=== PATIENT | male | born 1955 | race Caucasian/White ===

== ENCOUNTER → 2016-06-14 | Outpatient (CLI) | payer MEDICARE ==
--- NOTE | 2016-06-14 10:32 | MR ---
EXAMINATION TYPE: MR shoulder RT wo con DATE OF EXAM: 06/14/2016 9:56 AM COMPARISON: NONE HISTORY: 61-year-old male evaluated for Rotator cuff tear, pain x 1 month. TECHNIQUE: Multiplanar, multisequence imaging of the right shoulder is performed without contrast. FINDINGS: A bank of peripherally positioned suture anchors is present along the greater tuberosity from prior c uff repair. Secondary metal artifact. However, there is severe thinning and a fluid gap in the region of the is supraspinatus tendon measuring 1.8 cm long and 1.7 cm AP dimension. Some of the far anteri or supraspinatus tendon fibers appear to be maintained. The majority of the subscapularis tendon appears intact. There is isolated mild to moderate atrophy of the teres minor muscle belly. No mass lesion seen withi n the quadrilateral space. There are postsurgical changes at the acromion as well probably relating to prior acromioplasty. Small amount of fluid within the subacromial/subdeltoid bursa communicating with the underlying shoul lety joint. Glenohumeral joint appears intact without significant joint effusion. There is some degenerative sign al in the superior labrum without discrete labral tear given nonarthrographic technique. No paralabra l cyst. There is excessive artifact limiting visualization of the intracapsular portion of the long head maria c ps tendon. The visualized portions on sagittal series appears somewhat diminutive and could be partia lly torn. No Hill-Sachs deformity or os acromiale. No suspicious bone marrow replacement. IMPRESSION: 1. Status post cuff repair with findings compatible with full-thickness rotator cuff re-tear involvin g the supraspinatus tendon (1.8 cm long by 1.7 cm AP dimension) sparing some of the far anterior fibe rs. 2. Isolated teres minor muscle atrophy can be seen in the setting of quadrilateral space syndrome. 3. Metal artifact limiting visualization of the long head biceps tendon. The intracapsular portion ap pears somewhat diminutive and could be partially torn.
== END | disposition home or self-care (01) ==
LOC: RADMRIMAIN 09:22
PROVIDERS: ATTEND Orthopaedic Surgery
DX: M62.511 Muscle wasting and atrophy, not elsewhere classified, right shoulder (principal)

== ENCOUNTER → 2016-10-09 | Outpatient (CLI) | payer MEDICARE ==
--- NOTE | 2016-10-09 09:25 | MR ---
MRI of the brain with and without contrast HISTORY: Tremors and unsteadiness TECHNIQUE: T1-weighted sagittal, T2, FLAIR, and diffusion axial, postcontrast T1 axial and coronal vi ews of the brain are submitted. CONTRAST: 20 mL MultiHance FINDINGS: There is no evidence of acute ischemia. The ventricles, basal cisterns, and sulci overlying the co nvexities are consistent with the patient's age. There is no mass effect or enhancing mass. Craniocervical junction maintained. Sella turcica has a normal appearance. No evidence of cerebellopo ntine angle mass. Changes of chronic sinusitis. Abnormal signal the chel[place] is suggestive of remote ischemia. Faint abnormal signal the periventricular region as well as areas of focal abnormal signal are nonspe cific. Most likely etiology is remote microvascular ischemia no midline shift or mass effect. There is a venous angioma left temporal lobe. IMPRESSION: 1. No acute intracranial process. 2. Nonspecific white matter changes. Most likely etiology is remote microvascular ischemia. Other darell ologies including demyelinating process not entirely excluded. 3. Findings involving the chelsea most typical of remote ischemia. 4. Venous angioma left temporal lobe
== END | disposition home or self-care (01) ==
LOC: RADMRIMAIN 07:39
PROVIDERS: ATTEND Family Medicine
DX: Q28.3 Other malformations of cerebral vessels (principal); R90.82 White matter disease, unspecified; R25.1 Tremor, unspecified; R26.81 Unsteadiness on feet
CPT/HCPCS: 70553; A9577

== ENCOUNTER 2016-10-20 22:53 | Emergency (ER) | payer MEDICARE ==
[2016-10-20 23:00] VITALS: RESP 18
--- NOTE | 2016-10-21 00:47 | ED ---
General Adult HPI - General Chief complaint: Extremity Injury, Lower Stated complaint: L foot pain Time Seen by Provider: 10/20/16 23:11 Source: patient, family, RN notes reviewed, old records reviewed Mode of arrival: wheelchair Limitations: no limitations - History of Present Illness Initial comments: chief complaint history of present illness this is a 61-year-old male here with his significant other. He is coming because of painful swollen left leg. States his feet up and cold as well otherwise no complaint of headache chest pain shortness breath GI/ problems - Related Data Allergies Allergy/AdvReac Type Severity Reaction Status Date / Time amoxicillin Allergy Rash/Hives Verified 10/20/16 23:00 Review of Systems ROS Statement: Those systems with pertinent positive or pertinent negative responses have been documented in the HPI. review of systems no complaint of headache or chest pain or shortness of breath no GI/ problems. His been having discomfort to his feet. States his left ankle and leg is more swollen than the tender left calf. All systems are reviewedPast medical problems significant breasts leg syndrome hyperlipidemia, surgeries bilateral shoulder repairs and appendectomy. Family history noncontributory ALLERGIES to amoxicillin. ROS Other: All systems not noted in ROS Statement are negative. Past Medical History Past Medical History: Hyperlipidemia Additional Past Medical History / Comment(s): Restless leg History of Any Multi-Drug Resistant Organisms: None Reported Past Surgical History: Appendectomy, Orthopedic Surgery Additional Past Surgical History / Comment(s): Bilateral shoulder surgery, right elbow, right knee Past Psychological History: No Psychological Hx Reported Smoking Status: Current every day smoker Past Alcohol Use History: None Reported Past Drug Use History: None Reported General Exam - General Exam Comments Initial Comments: General: The patient is awake and alert, planes of on again off again pain to his feet and swollen left ankle.l. Eye: Pupils are equal, , extra-ocular movements are intact; there is normal conjunctiva bilaterally. No signs of icterus. Ears, nose, mouth and throat: There are moist mucous membranes Neck: The neck is supple, there is no tenderness Cardiovascular: There is a regular rate and rhythm. No murmur, rub or gallop is appreciated. Respiratory: Lungs are clear to auscultation, respirations are non-labored, breath sounds are equal. No wheezes, stridor, rales, or rhonchi. Gastrointestinal: Soft, non-distended, non-tender abdomen without masses or organomegaly noted. There is no rebound or guarding present. No CVA tenderness. Bowel sounds are unremarkable. Back: There is no tenderness to palpation in the midline. There is no obvious deformity. No rashes noted. Musculoskeletal: complains of occasional on-again off-again foot pain and feeling cold. Mild swelling left leg left ankle. Doppler used to and he could hear posterior tibial pedis dorsalis and posterior peroneal on both feet.ultrasound negative for DVT left leg Neurological: no neuro deficits Limitations: no limitations Course Vital Signs 10/20/16 22:56 Temperature 97.7 F Pulse Rate 94 Respiratory 18 Rate Blood Pressure 126/73 O2 Sat by Pulse 95 Oximetry Procedures - Procedures Initial comment: her seizure I used a Doppler to investigate the arterial flow both feet and all 3 major vessels were found on bimalleolar areas and pedis dorsalis. Dr. Acosta Medical Decision Making - Medical Decision Making patient has a prescription to get an arterial Doppler. they have an appointment. They've been advised to keep legs elevated and return for that appointment if in the meanwhile any changes happened return emergency room. Disposition Clinical Impression: Peripheral vascular disease Disposition: HOME SELF-CARE Condition: Fair Instructions: Peripheral Vascular Disease (ED) Additional Instructions: Follow-up family physician return to the department on the day of your appointment to have an arterial Doppler study. Referrals: Renetta Colon III, MD [Primary Care Provider] - 1-2 days Time of Disposition: 00:50
[2016-10-21 01:02] VITALS: BP 145/89; PULSE 81; TEMP 98.7
--- NOTE | 2016-10-21 01:16 | US ---
EXAM: US VENOUS LEFT LOWER EXTREMITY INDICATION: 61-year-old male with pain. TECHNIQUE: Real-time imaging of the left common femoral, superficial femoral and popliteal veins is performed utilizing intermittent compression. The study is supplemented with color flow imaging and duplex Doppler during spontaneous flow and calf augmentation. COMPARISON: None. FINDINGS: Normal compressibility is demonstrated from the common femoral vein to the popliteal vein. There is normal response to augmentation. Normal spontaneous phasic flow is noted. IMPRESSION: No evidence of deep venous thrombosis in the left lower extremity.
== END 2016-10-21 01:00 | disposition home or self-care (01) ==
LOC: EC 22:53
DX: I73.9 Peripheral vascular disease, unspecified (principal); F17.200 Nicotine dependence, unspecified, uncomplicated; Z88.0 Allergy status to penicillin
CPT/HCPCS: 99284

== ENCOUNTER → 2016-10-26 | Outpatient (CLI) | payer MEDICARE ==
--- NOTE | 2016-10-26 15:23 | CTL ---
EXAMINATION TYPE: CT Low Dose Lung DATE OF EXAM ORDERED: 10/26/2016 HISTORY: Personal history of tobacco use. Lung cancer screening CT DLP: [address] CTDI: 2.68 mGy Automated exposure control for dose reduction was used. SCREENING VISIT: First study COMPARISON: None TECHNIQUE: Low dose computed tomography scan was performed through the chest at 1 mm thick sections a nd reconstructed images in the coronal plane at [address] DIAGNOSTIC QUALITY: Limited, but interpretable More artifact than typical. FINDINGS: LUNG NODULES: None. No concerning noncalcified nodules. There is 7 x 6 mm calcified nodule superio r medial right upper lobe on axial image 126. LUNGS: COPD: Severity: Mild Fibrosis: Severity: Mild reticulation or fibrosis subpleural region bilateral upper lobes. Lymph nodes: Prominent but subcentimeter prevascular, AP window, and paracarinal lymph nodes. No grea ter than 1 cm noncalcified lymph nodes. Prominent calcified subcentimeter right hilar lymph node. Other findings: Mild central parahilar peribronchial cuffing bilaterally. BILATERAL PLEURAL SPACE: Effusion: None Calcification: None Thickening: Mild to minimal apical pleural thickening posterior laterally right upper lobe. Pneumothorax: None HEART: Heart Size: Normal Coronary calcification: Mild to moderate Pericardial effusion: None OTHER FINDINGS: Upper abdomen: No significant abnormality seen. Bony thorax: Mild multilevel spurring is present. Supraclavicular region: No suspicious abnormality is seen. Other: No additional significant finding identified. IMPRESSION: No suspicious nodules evident. FOLLOW UP CT CHEST RECOMMENDATION: Annual low-dose lung screening CT. CT LUNG RAD: Lung-Rad 1 Negative
== END | disposition home or self-care (01) ==
LOC: RADCTMAIN 07:56
PROVIDERS: ATTEND Family Medicine
DX: Z12.2 Encounter for screening for malignant neoplasm of respiratory organs (principal); F17.210 Nicotine dependence, cigarettes, uncomplicated

== ENCOUNTER → 2016-11-05 | Outpatient (CLI) | payer MEDICARE ==
--- NOTE | 2016-11-07 11:30 | P.ARTDOP ---
Arterial Doppler LOWER EXTREMITY ARTERIAL DOPPLER: DATE OF SERVICE: 11/05/2016 Reason for study: Left foot pain. Doppler waveforms: Multiphasic bilaterally throughout. Pulse volume recording: Normal configuration. Pressure gradients: None. Ankle-brachial indices: Greater than 1 bilaterally. Toe pressures: 91 on the right, 96 on the left Impression: Normal study.
== END | disposition home or self-care (01) ==
LOC: RADUSWWP 08:23
PROVIDERS: ATTEND Family Medicine
DX: M79.672 Pain in left foot (principal); R20.2 Paresthesia of skin
CPT/HCPCS: 93923

== ENCOUNTER → 2016-11-23 | Outpatient (CLI) | payer MEDICARE ==
--- NOTE | 2016-11-23 15:12 | XR ---
EXAMINATION TYPE: XR foot complete LT DATE OF EXAM: 11/23/2016 COMPARISON: NONE HISTORY: 61 year-old male left foot pain for 3 months TECHNIQUE: 3 views FINDINGS: There is a Morel's toe with minimal degenerative spurring first MTP joint, type I accessory navicula r, accessory ossicle os peroneum, and tiny plantar calcaneal spur. No acute fracture, subluxation, or dislocation. IMPRESSION: Morel's toe and tiny plantar calcaneal spur. No acute osseous abnormality seen.
== END | disposition home or self-care (01) ==
LOC: RAD 13:35
PROVIDERS: ATTEND Nurse Practitioner Family
DX: G57.62 Lesion of plantar nerve, left lower limb (principal); M77.32 Calcaneal spur, left foot

== ENCOUNTER → 2017-11-08 | Outpatient (CLI) | payer MEDICARE ==
--- NOTE | 2017-11-08 13:02 | CTL ---
EXAMINATION TYPE: CT Low Dose Lung DATE OF EXAM ORDERED: 11/08/2017 HISTORY: Long-term tobacco use . Lung cancer screening CT DLP: 169.[address] CTDI: 4.2 mGy Automated exposure control for dose reduction was used. SCREENING VISIT: Second study COMPARISON: CT low dose lung screening CT October 26, 2016 TECHNIQUE: Low dose computed tomography scan was performed through the chest at 1 mm thick sections a nd reconstructed images in the coronal plane at [address] DIAGNOSTIC QUALITY: Satisfactory FINDINGS: LUNG NODULES: None. Persistent stable 6 mm calcified nodule right lower lobe axial image 142. LUNGS: COPD: Severity: Mild Fibrosis: Severity: Fairly mild to moderate upper lung peripheral reticulation and/or fibrosis is red emonstrated. Lymph nodes: No new greater than 1 cm noncalcified lymph nodes. Calcified subcentimeter right hilar l ymph nodes redemonstrated. Other findings: No additional significant findings. BILATERAL PLEURAL SPACE: Effusion: None Calcification: None Thickening: Minimal pleural thickening posterior lateral right upper lobe axial image 53 remains pres ent. Pneumothorax: None HEART: Heart Size: Normal Coronary calcification: Mild to moderate Pericardial effusion: None OTHER FINDINGS: Upper abdomen: No suspicious findings seen. Bony thorax: Straightening of spine with mild multilevel spurring is again seen. Supraclavicular region: No suspicious mass is identified. Other: Tiny amount of bilateral gynecomastia is redemonstrated. Surgical change to right humeral head is partially imaged. IMPRESSION: No suspicious nodules evident. FOLLOW UP CT CHEST RECOMMENDATION: Annual low-dose lung screening CT CT LUNG RAD: Lung-Rad 1 Negative
== END | disposition home or self-care (01) ==
LOC: RADCTMAIN 10:33
PROVIDERS: ATTEND Family Medicine
DX: Z12.2 Encounter for screening for malignant neoplasm of respiratory organs (principal); Z87.891 Personal history of nicotine dependence

== ENCOUNTER → 2018-06-10 | Outpatient (CLI) | payer MEDICARE, BC ==
--- NOTE | 2018-06-10 13:09 | XR ---
EXAMINATION TYPE: XR chest 2V DATE OF EXAM: 06/10/2018 COMPARISON: NONE TECHNIQUE: PA and lateral views submitted. HISTORY: Preop FINDINGS: The lungs are clear and there is no pneumothorax, pleural effusion, or focal pneumonia. The heart i s enlarged. Postsurgical change overlying the shoulder. Pleural thickening noted bilaterally. IMPRESSION: 1. Cardiomegaly correlate for COPD and pleural thickening.
[2018-06-10 14:58] LABS: Appearance,Urine Cloudy (Clear); Bilirubin,Urine Negative (Negative); Blood,Urine Negative (Negative); Color,Urine Yellow; Glucose,Urine (UA) Negative (Negative); INR 0.9 (<1.2); Ketones,Urine Negative (Negative); Leukocyte Esterase,Urine Moderate (Negative); Mucus,Urine Few /hpf; Nitrite,Urine Negative (Negative); Partial Thromboplastin Time 27.3 sec (22.0-30.0); Protein,Urine Negative (Negative); Prothrombin Time 10.2 sec (9.0-12.0); RBC,Urine 4 /hpf (0-5); Specific Gravity,Urine 1.022 (1.001-1.035); Squamous Epithelial Cell,Urine 2 /hpf (0-4); Urobilinogen,Urine <2.0 mg/dL (<2.0); WBC,Urine 10 /hpf (0-5)
== END | disposition home or self-care (01) ==
LOC: RADXRMAIN 12:21
PROVIDERS: ATTEND Orthopaedic Surgery Orthopaedic Surgery of the Spine
DX: Z01.818 Encounter for other preprocedural examination (principal); I51.7 Cardiomegaly; J92.9 Pleural plaque without asbestos; Z01.812 Encounter for preprocedural laboratory examination
CPT/HCPCS: 36415; 71046; 81001; 85610; 85730; 87070

== ENCOUNTER 2018-06-18 07:30 | Inpatient (IN) | payer MEDICARE, BC ==
[2018-06-13 13:28] VITALS: BMI 35.4
[~2018-06-18 07:30] MED LIST: BACITRACIN 50,000 UNIT, POLYMYXIN B 500,000 UNIT in SODIUM CHLORIDE 0.9% IRRIGATIO 1,00... IRRIGATION ONE; DEXAMETHASONE SOD PHOSPHATE 10 MG/ML 1 ML VIAL IV ONE; HYDROmorphone 0.5 MG/0.5 ML SYRINGE IVP PRN; MIDAZOLAM (PF) 2 MG/2 ML VIAL IV PRN; ONDANSETRON 4 MG/2 ML VIAL IVP ONE; SCOPOLAMINE 1.5MG/72HR PATCH TRANSDERM ONE; ceFAZolin IN SWFI 2 GM/20 ML SYRINGE IVP ONE
[2018-06-18] MEDS: LACTATED RINGERS 1,000 ML IV SCH (11:27)
[2018-06-18] MEDS ORDERED: fentaNYL (PF) 50 MCG/ML 2 ML AMP ONE (11:43)
[2018-06-18] MEDS ORDERED: NEOSTIGMINE 1 MG/ML 10 ML VIAL ONE (11:43)
[2018-06-18] MEDS ORDERED: ROCURONIUM BROMIDE 10 MG/ML 10 ML VIAL IV ONE (11:43)
[2018-06-18] MEDS ORDERED: HYDROmorphone (PF) 1 MG/ML ONE (11:43)
[2018-06-18] MEDS ORDERED: PHENYLEPHRINE-0.9% NACL SYG 1 MG/10 ML SYRINGE ONE (11:43)
[2018-06-18] MEDS ORDERED: LIDOCAINE 1% INJ 10MG/ML (20 ML MDV) ONE (11:43)
[2018-06-18] MEDS ORDERED: LACTATED RINGERS 1,000 ML BAG IV ONE (11:43)
[2018-06-18] MEDS ORDERED: MIDAZOLAM 2 MG/2 ML VIAL ONE (11:43)
[2018-06-18] MEDS ORDERED: ePHEDrine SULFATE/0.9% NACL/PF 50 MG/5 ML SYRINGE IV ONE (11:43)
[2018-06-18] MEDS ORDERED: GLYCOPYRROLATE 0.2 MG/ML 2 ML VIAL ONE (11:43)
[2018-06-18] MEDS ORDERED: PROPOFOL 10 MG/ML 20 ML VIAL IV ONE (11:43)
[2018-06-18] MEDS ORDERED: THROMBIN (BOVINE) 5,000 UNIT VIAL TOPICAL ONE (12:29)
[2018-06-18] MEDS ORDERED: LIDOCAINE 0.5%-EPI 1:200,000 50 ML VIAL SQ ONE (12:29)
[2018-06-18] MEDS ORDERED: GELATIN SPONGE,ABSORB (LARGE) 1 EACH SPONGE TOPICAL ONE (12:30)
[2018-06-18] MEDS ORDERED: LACTATED RINGERS 1,000 ML IV ONE ×2 (13:29→15:22)
[2018-06-18] MEDS ORDERED: HYDROmorphone 0.5 MG/0.5 ML SYRINGE IVP PRN (15:53)
[2018-06-18] MEDS ORDERED: MAGNESIUM HYDROXIDE 2,400 MG/10 ML CUP PO PRN (15:53)
[2018-06-18] MEDS ORDERED: HYDROmorphone 1 MG/ML 1 ML SYRINGE IVP PRN (15:53)
[2018-06-18] MEDS ORDERED: BENZOCAINE/MENTHOL LOZENG 1 EACH LOZENGE MUCOUS MEM PRN (15:53)
[2018-06-18] MEDS ORDERED: ONDANSETRON 4 MG/2 ML VIAL IVP PRN (15:54)
[2018-06-18] MEDS ORDERED: ALBUTEROL NEBULIZED 2.5 MG/3 ML INHALATION PRN (15:57)
[2018-06-18] MEDS ORDERED: ceFAZolin 3 GM in SODIUM CHLORIDE 0.9% 100 ML IVPB SCH (16:00)
--- NOTE | 2018-06-18 16:04 | P.OP ---
Date of Procedure: 06/18/18 Preoperative Diagnosis: Spinal stenosis L4 5 L5-S1, herniated nuclear pulposus L4 5 L5-S1, degenerative disc disease, lower extremity radiculopathy, neurogenic claudication, low back pain, lower extremity weakness Postoperative Diagnosis: Same Anesthesia: GETA Pathology: none sent Condition: stable Disposition: PACU Description of Procedure: DESCRIPTION OF PROCEDURE(S): BRIEF OPERATIVE NOTE Preoperative Diagnosis: Spinal stenosis L4 5 L5-S1, herniated nuclear pulposus L4 5 L5-S1, degenerative disc disease, lower extremity radiculopathy, neurogenic claudication, low back pain, lower extremity weakness Postoperative Diagnosis: Same Procedure: Laminectomy and decompression L4 5 L5-S1 Minimally invasive Posterior lateral decompression and facet fusion L4 5 L5-S1 Minimally invasive Transforaminal lumbar interbody fusion for a 360 fusion L4 5 L5-S1 Discectomy for decompression L4 5 L5-S1 Placement of interbody graft L4 5 L5-S1 Local autogenous bone grafting Harvesting of bone marrow aspirate via the pedicle of L4 Use of Cell Saver Use of bone graft extenders Surgeon: [facility] Administrator: Clay Mims is present throughout the entire the case persistence during positioning, dissection, exposure, visualization, and all crucial elements of the case as well as closure. Anesthesia: General anesthesia Estimated blood loss: Approximate 250 mL Complications: None apparent Components implanted: K2M minimally invasive Straughn pedicle screw system C6 of 6 screws measuring 6.5 mm 2 rods, we also used one osteoamp sponge and DBX bone fibers to supplemental local autogenous bone graft and bone marrow aspirate Disposition: To recovery room in good stable condition. OPERATIVE INDICATIONS The patient has had long-standing issues in their lower back and lower extremities. He is having worsening symptoms in his lower extremities and was having giving way and his legs with weakness. He is having worsening symptoms despite conservative care. He had imaging which showed significant stenosis L4 5 and L5-S1 with disc herniation and disc degeneration which really well with low back and lower extremity symptoms. The patient has been through conservative treatment. We discussed various treatment options including surgery, and the patient wishes to proceed with surgery We discussed the risk, patient's alternatives and benefits of surgery including but not limited to, risk of bleeding risk of infection, risk of need for further surgery, risk of decreased, loss of motion, muscle function, malunion nonunion, hardware failure , nerve damage, paralysis, heart attack, blindness and . OPERATIVE SUMMARY After discussing all the risks, patient alternatives and benefits at length, the patient elected to proceed with surgical intervention, signed informed consent, and presented for their procedure. The patient was seen and examined in the preoperative holding area and the surgical site was marked. The patient was given antibiotics and brought to the operating room. The patient was sedated and intubated by anesthesia in standard fashion. The patient was positioned on to the operating room table in a prone position on the appropriate frame which was well-padded and well molded. We were careful to pad any bony prominences and pressure points. We were careful to maintain the patient's cervical spine and good neutral alignment and position throughout. The patient was prepped and draped in a normal standard fashion. An appropriate timeout and keystone protocol performed. We were able to proceed with the surgery. The local wound area was infiltrated with local anesthetic. I was able utilize C-arm guidance to establish appropriate position over the pedicles bilaterally at the appropriate levels from L4 to S1. With the appropriate levels confirmed was able to make small stab incisions over the appropriate pedicle sites bilaterally. Utilizing C-arm in his house able to establish a Jamshidi needle over the lateral aspect of the pedicle and advanced the trocar into the pedicle being careful not to breech superiorly inferiorly medially or laterally. Position was confirmed regularly with AP and lateral images on C-arm. I was able to establish the trocar into the pedicle appropriately into the posterior aspect of the vertebral body bilaterally at the appropriate levels. This was done at each of the pedicle positions and each of the vertebrae. At the L4 vertebrae on the right I was able to use the Jamshidi needle to establish a trocar for aspiration of the bone marrow aspirate approximately 20 mL which was utilized later in the case to adjunct the bone graft. I was able place the guidewire into the trocar and into the vertebral body appropriately under C-arm guidance. Dissection was taken down over the wire to the appropriate starting position for the screw placed. The appropriate length screw was chosen, threaded over the guidewire and screwed appropriately into the pedicle and vertebral body under C-arm guidance in excellent alignment and position with good bony purchase. This is done at each of the screw sites at the appropriate levels at L4-L5 and S1 bilaterally. With the screws intact I extended the incision to connect the screw hole sites on the most symptomatic side on the left. I dissected down to establish access over the pars and lamina to the base of the spinous process. I was able to expose the facet joint. The capsule the facet was taken down and showed some severe facet arthrosis at the joint. I was able to use a combination of curettes and Kerrison rongeurs and a high-speed drill to take down the facet joint and do a facetectomy. Partial laminectomy was also performed. I was able get excellent foraminal decompression and central decompression with undermining across midline to perform a laminectomy centrally and contralaterally. As able get good central decompression. The ligamentum flavum was taken down to further decompress centrally and at bilateral neural foramen. I was able to expose the disc space and visualize the traversing nerve root. Note was made of some disc protrusion at the level causing further compression of the nerve root. At each of the levels there was some posterior spurring, particularly at L5-S1 which where there was severely large posterior osteophytic spur which was taken partially taken down as well. There is disc herniation and protrusion which was removed for further decompression. I was able to establish a annulotomy at the appropriate level protecting soft tissue and neural structures. Note was made of some disc desiccation at the disc. I performed a complete discectomy with accommodation of curettes and rasps and scrapers. I was able get good endplate preparation at the disc space. I sized for the appropriate size interbody spacer protecting the soft tissue and neural structures. The wound was copiously irrigated and suctioned dry. There is no evidence of any dural tear or leak. This was done first at L5-S1 and then at L4 5 I was able to pack the disc space with local autogenous bone graft as well as a small amount of bone graft which was also placed into the interbody cage itself. Protecting the soft tissue structures and neural structures I was able place the interbody cage in good alignment and good position with good fit and fill at the interbody space. His issues was confirmed with C-arm guidance. Good hemostasis maintained. There is no evidence of any dural tear or leak. The wound was irrigated and suctioned dry. With the hardware intact, intraoperative C-arm imaging was again taken which showed good alignment and position of the hardware at the appropriate levels at L4 5 and S1. We were then able to measure, contour and place the rods and appropriate hardware bilaterally at L4-L5 and S1. I was able to place capcrews , tighten them down, and torque them with the torque screwdriver appropriately. With this intact I was able to place the local autogenous bone graft with additional bone graft enhancer as necessary into the posterior lateral gutters over the decorticated transverse processes. The remainder of the bone graft was placed over the facet joint on the contralateral side after taking down the facet joint capsule. With the bone graft intact, a stable construct, and good decompression at the appropriate levels, we were able to proceed with closure. Good hemostasis was maintained. There is no evidence of dural tear or leak. The fascia was closed for a watertight closure. he subcuticular tissue was closed with absorbable suture. The wound was cleaned and dried and dressed with the appropriate dressing. The drapes were broken down. The patient was gently rolled back onto their hospital bed being careful to maintain their cervical spine and good neutral alignment and position. They were woken up by anesthesia, extubated, and brought to the recovery room in good stable condition. The patient will be admitted to the hospital for appropriate postoperative care , medical management and monitoring. We will continue to follow them closely about the postoperative course.
--- NOTE | 2018-06-18 16:15 | FL ---
Fluoroscopy INDICATION: Pain FINDINGS: Fluoroscopy time: 74 seconds. Images obtained: 2. IMPRESSIONS: 1. Documentation of fluoroscopy.
[2018-06-18] MEDS: SODIUM CHLORIDE 0.9% 1,000 ML IV SCH (17:31)
[2018-06-18] MEDS: ceFAZolin IN SWFI 2 GM/20 ML SYRINGE IVP SCH (22:02)
[2018-06-18] MEDS: ATORVASTATIN 10 MG TAB PO SCH (22:03)
[2018-06-18] MEDS: NITROFURANTOIN MONOHYD/M-CRYST 100 MG CAP PO SCH (22:03)
[2018-06-18] MEDS: PRAMIPEXOLE 0.5 MG TAB PO SCH (22:03)
[2018-06-19] MEDS: SODIUM CHLORIDE 0.9% 1,000 ML IV SCH ×2 (05:22→21:02)
[2018-06-19] MEDS: ceFAZolin IN SWFI 2 GM/20 ML SYRINGE IVP SCH (05:22)
[2018-06-19] MEDS: LACTATED RINGERS 1,000 ML IV SCH (05:23)
[2018-06-19 08:03] LABS: Basophils % (A) 0 %; Eosinophils # (A) 0.1 k/uL (0-0.7); Eosinophils % (A) 0 %; HGB 13.3 gm/dL (13.0-17.5); Lymphocytes # (A) 1.1 k/uL (1.0-4.8); Lymphocytes % (A) 6 %; MCH 29.2 pg (25.0-35.0); MCHC 31.7 g/dL (31.0-37.0); MCV 92.2 fL (80.0-100.0); Mean Platelet Volume 7.7; Monocytes # (A) 1.5 k/uL (0-1.0); Monocytes % (A) 8 %; Neutrophils # (A) 17.1 k/uL (1.3-7.7); Neutrophils % (A) 85 %; Platelet Count 199 k/uL (150-450); RBC 4.56 m/uL (4.30-5.90); WBC 20.1 k/uL (3.8-10.6)
[2018-06-19 08:16] LABS: Calcium 8.4 mg/dL (8.4-10.2); Potassium 4.7 mmol/L (3.5-5.1)
[2018-06-19] MEDS: NITROFURANTOIN MONOHYD/M-CRYST 100 MG CAP PO SCH ×2 (09:51→21:01)
[2018-06-19] MEDS: CHOLECALCIFEROL 1,000 UNIT TAB PO SCH (09:51)
[2018-06-19] MEDS: SENNOSIDES-DOCUSATE SODIUM 1 EACH TAB PO SCH (09:51)
[2018-06-19] MEDS: ESCITALOPRAM 10 MG TAB PO SCH (09:51)
[2018-06-19] MEDS: ASPIRIN 81 MG PO SCH (09:52)
[2018-06-19] MEDS: HYDROcodone/APAP 5-325MG 1 EACH TAB PO PRN ×2 (09:55→17:50)
--- NOTE | 2018-06-19 10:23 | P.PN ---
Progress Note - Text Progress Note Date: 06/19/18 Postoperative day #1 Patient is seen and examined today at bedside. The patient has some pain around the surgical site as expected. Pain is being controlled with medication. He is not having any changes in his legs. He has been up out of bed yesterday evening. Physical Exam Afebrile with stable vital signs Abdomen is soft nontender. Chest has good excursion deep and space expiration The incision site at his back had some bloody drainage overnight but there is no active drainage currently. No erythema there is no purulence. The area appears dry currently Extremities have not had neurologic change from prior to surgery. He has sustained dorsal flexion plantar flexion and EHL intact Calves and thighs were soft nontender without evidence of DVT. Assessment/Plan Postoperative day 1 status post minimally invasive decompression and fusion FOR 5 L5-S1 for his severe stenosis with herniated nucleus pulposis lower extremity radiculopathy Patient is progressing as expected from the surgery. The bloody drainage appears to assess slowed significantly and appears stable. He should do dry dressing changes for now. It is okay for him to mobilize. We will continue to increase the patient's mobilization with therapy. His family is unsure about being able to manage him once he gets home and he'll likely need a couple days here before is safe on his own at home. We will continue pain control with oral or IV medications. We'll continue to follow patient closely.
[2018-06-19] MEDS: NICOTINE 7MG/24HR PATCH TRANSDERM SCH (13:14)
--- NOTE | 2018-06-19 14:54 | P.CONS ---
History of Present Illness - Reason for Consult Leukocytosis, sinus tachycardia - History of Present Illness Patient is a very pleasant 58-year-old gentleman was admitted for Lumbar laminectomy decompression surgery L4-5 and L5-S1. Successfully underwent surgery. Patient does have baseline tremors has been there since his childhood patient denied any fever chills nausea vomiting sluggish bowel sounds on exam did not pass gas did not move his bowel yet. Patient denied any cough dysuria nausea vomiting. Review of Systems REVIEW OF SYSTEMS: CONSTITUTIONAL: No fever, no malaise, no fatigue. HEENT: No recent visual problems or hearing problems. Denied any sore throat. CARDIOVASCULAR: No chest pain, orthopnea, PND, no palpitations, no syncope. PULMONARY: No shortness of breath, no cough, no hemoptysis. GASTROINTESTINAL: No diarrhea, no nausea, no vomiting, no abdominal pain. NEUROLOGICAL: No headaches, no weakness, no numbness. HEMATOLOGICAL: Denies any bleeding or petechiae. GENITOURINARY: Denies any burning micturition, frequency, or urgency. MUSCULOSKELETAL/RHEUMATOLOGICAL: Back pain from surgery ENDOCRINE: Denies any polyuria or polydipsia. The rest of the 14-point review of systems is negative. Past Medical History Past Medical History: Cancer, Hyperlipidemia, Rheumatoid Arthritis (RA), Sleep Apnea/CPAP/BIPAP Additional Past Medical History / Comment(s): Restless leg syndrome, no cpap used, 4-5 bad discs from old injury, hx cancerous polyps in the colon, balance problems-uses cane, "legs want to give out", on antibioitc for UTI History of Any Multi-Drug Resistant Organisms: None Reported Past Surgical History: Appendectomy, Orthopedic Surgery Additional Past Surgical History / Comment(s): Bilateral shoulder surgery, right knee arthroscopic, bone chip removed from rt elbow,, rt shoulder surgery x 2 for spurs, left shoulder surgery Past Anesthesia/Blood Transfusion Reactions: No Reported Reaction Smoking Status: Current every day smoker - Past Family History Father Family Medical History: Cancer Mother Family Medical History: Cancer Medications and Allergies Home Medications Medication Instructions Recorded Confirmed Type Albuterol Inhaler [Ventolin Hfa 2 puff INHALATION RT-BID PRN 06/13/18 06/18/18 History Inhaler] Aspirin [Adult Low Dose Aspirin EC] 81 mg PO DAILY 06/13/18 06/18/18 History Cannabidiol (Cbd) Extract 1 applic TOPICAL DAILY 06/13/18 06/18/18 History [Epidiolex] Cholecalciferol [Vitamin D3] 2,000 unit PO DAILY 06/13/18 06/18/18 History Escitalopram [Lexapro] 10 mg PO DAILY 06/13/18 06/18/18 History Hydrocodone/Acetaminophen [[place] 1 tab PO BID PRN 06/13/18 06/18/18 History 5-325] Naproxen [Naprosyn] 500 mg PO Q12HR PRN 06/13/18 06/18/18 History Nitrofurantoin Monohyd/M-Cryst 100 mg PO Q12HR 06/13/18 06/18/18 History [Macrobid] Pramipexole [Mirapex] 0.5 mg PO HS 06/13/18 06/18/18 History Simvastatin [Zocor] 10 mg PO HS 06/13/18 06/18/18 History Allergies Allergy/AdvReac Type Severity Reaction Status Date / Time amoxicillin Allergy Rash/Hives Verified 06/18/18 16:30 Physical Exam Vitals: Vital Signs Temp Pulse Resp BP Pulse Ox 06/19/18 09:29 95 06/19/18 07:05 98 F 109 H 14 136/83 95 06/19/18 00:02 98.8 F 110 H 16 101/70 94 L 06/18/18 19:11 98.0 F 118 H 16 137/82 98 06/18/18 18:00 107 H 138/86 06/18/18 17:45 111 H 117/77 06/18/18 17:30 102 H 136/89 99 06/18/18 17:15 111 H 153/99 96 06/18/18 17:01 89 16 149/80 97 06/18/18 17:00 98.7 F 101 H 126/72 96 06/18/18 16:45 91 16 155/93 97 06/18/18 16:30 91 16 155/85 98 06/18/18 16:12 97.4 F L 89 16 92/53 98 Intake and Output 06/18/18 06/19/18 06/19/18 22:59 06:59 14:59 Intake Total 1050 625 Output Total 480 700 780 Balance 570 700 -155 Intake: IV 1050 Intake, IV Titration 625 Amount Sodium Chloride 0.9% 1, 625 000 ml @ 75 mls/hr IV . [id number] [facility] Rx#:[id number] Output: Urine 180 700 780 Uretheral (Flowers) 500 Estimated Blood Loss 300 Other: Voiding Method Indwelling Catheter Indwelling Catheter Indwelling Catheter PHYSICAL EXAMINATION: GENERAL: The patient is alert and oriented x3, not in any acute distress. Well developed, well nourished. HEENT: Pupils are round and equally reacting to light. EOMI. No scleral icterus. No conjunctival pallor. Normocephalic, atraumatic. No pharyngeal erythema. No thyromegaly. CARDIOVASCULAR: S1 and S2 present. No murmurs, rubs, or gallops. PULMONARY: Chest is clear to auscultation, no wheezing or crackles. ABDOMEN: Soft, nontender, nondistended, sluggish bowel sounds MUSCULOSKELETAL: Deferred to orthopedic surgery EXTREMITIES: No cyanosis, clubbing, or pedal edema. NEUROLOGICAL: Gross neurological examination did not reveal any focal deficits. SKIN: No rashes. Results CBC & Chem 7: 06/19/18 07:18 06/19/18 07:18 Labs: Abnormal Lab Results - Last 24 Hours (Table) 06/19/18 06/19/18 Range/Units 07:18 07:18 WBC 20.1 H (3.8-10.6) k/uL Neutrophils # 17.1 H (1.3-7.7) k/uL Monocytes # 1.5 H (0-1.0) k/uL Carbon Dioxide 21 L (22-30) mmol/L Glucose 158 H (74-99) mg/dL Assessment and Plan Plan: -Leukocytosis reactive and there is no evidence of infection from antibiotics redness at this time we'll closely monitor for any fevers incentive spirometry -Tachycardia: Secondary to pain patient will be continued on IV fluids -Mild acute renal failure continue IV fluids and repeat CBC and a basic metabolic profile tomorrow -Hyperlipidemia --Sleep apnea continue with CPAP machine -Nicotine abuse: Counseling was provided patient only smokes about 5-6 cigarettes we'll use nicotine patch if needed -Depression continue with the Lexapro . -Benign essential tremor for which patient is on pramipexole which will be continued Due to prophylaxis as per primary service pain management as per primary service patient is status post laminectomy surgery as mentioned above postoperative day one
[2018-06-19] MEDS: ATORVASTATIN 10 MG TAB PO SCH (21:01)
[2018-06-19] MEDS: PRAMIPEXOLE 0.5 MG TAB PO SCH (21:02)
[2018-06-20] MEDS: LACTATED RINGERS 1,000 ML IV SCH (01:44)
[2018-06-20] MEDS: HYDROcodone/APAP 5-325MG 1 EACH TAB PO PRN ×5 (01:49→23:43)
[2018-06-20 07:19] LABS: Glucose,Whole Blood 128 mg/dL (75-99)
[2018-06-20] MEDS: NITROFURANTOIN MONOHYD/M-CRYST 100 MG CAP PO SCH ×2 (09:42→21:28)
[2018-06-20] MEDS: NICOTINE 7MG/24HR PATCH TRANSDERM SCH (09:42)
[2018-06-20 09:43] LABS: Basophils % (A) 0 %; Eosinophils # (A) 0.1 k/uL (0-0.7); Eosinophils % (A) 0 %; HCT 36.3 % (39.0-53.0); HGB 11.8 gm/dL (13.0-17.5); Lymphocytes # (A) 1.7 k/uL (1.0-4.8); Lymphocytes % (A) 9 %; MCH 29.8 pg (25.0-35.0); MCHC 32.3 g/dL (31.0-37.0); MCV 92.1 fL (80.0-100.0); Mean Platelet Volume 7.2; Monocytes % (A) 6 %; Neutrophils # (A) 15.4 k/uL (1.3-7.7); Neutrophils % (A) 84 %; Platelet Count 168 k/uL (150-450); RBC 3.95 m/uL (4.30-5.90); RDW 12.5 % (11.5-15.5); WBC 18.4 k/uL (3.8-10.6)
[2018-06-20] MEDS: CHOLECALCIFEROL 1,000 UNIT TAB PO SCH (09:43)
[2018-06-20] MEDS: ASPIRIN 81 MG PO SCH (09:43)
[2018-06-20] MEDS: ESCITALOPRAM 10 MG TAB PO SCH (09:43)
[2018-06-20] MEDS: SENNOSIDES-DOCUSATE SODIUM 1 EACH TAB PO SCH (09:43)
[2018-06-20] MEDS: SODIUM CHLORIDE 0.9% 1,000 ML IV SCH ×2 (12:10→21:28)
--- NOTE | 2018-06-20 12:12 | P.PN ---
Progress Note - Text Progress Note Date: 06/20/18 Orthopedic Spine Patient is a pleasant 63-year-old male who is seen and examined at the bedside following posterior lateral decompression and fusion performed Saturday. Patient states they are doing ok postsurgically. He continues to have some pain in the surgical sites. He is not currently experiencing significant lower extremity radiculopathy weakness bilaterally. He has been able to transfer to a bedside chair and ambulate to the restroom with assistance of a walker. He does not have a walker at home. Currently does not complain of nausea, vomiting , fever, or chills. Patient states pain has been adequately controlled. Patient is eating and voiding freely without difficulty. Physical Exam Lumbar Fusion: Status post surgical day number 2 Patient is awake, alert, and oriented 3 Vital signs stable Good chest excursion with deep inspiration and expiration Abdomen soft nontender Dorsiflexion, plantarflexion, and extensor hallucis longus positive sustained bilaterally No signs or symptoms of DVT; no calf pain; pneumatic cuffs intact bilateral lower extremities Dressing is clean, dry, and intact; no erythema, purulence, or signs of infection No significant pain with palpation over the surgical sites Neurovascularly intact bilaterally lower extremities Assessment: L4-5 and L5-S1 minimally invasive posterior lateral decompression and fusion with transforaminal lumbar interbody fusion Low back pain Lumbar degenerative disc disease Lower extremity radiculopathy Neurogenic claudication History of hyperlipidemia Plan: 1. Ambulate as tolerated; work with Physical Therapy to increase mobilization 2. Continue pain control with IV and oral medications; MAPS has been reviewed today, 06/20/2018, with no matching patient in the database. An "Opiod Start Talking" Form has been signed by the patient and myself in place in the patient' s chart. A prescription has been written for [place] 5 mg/325 mg 1-2 tabs every 6 hours as needed for pain, dispensed #56. Prescription is placed in patient's chart along with opioid form. 3. Dressing to remain intact with Telfa and Tegaderm 4. Medical management can continue to manage patient for patient's other medical issues 5. We will continue to follow the patient closely; patient is able to improve over the weekend may plan for his discharge home over the weekend with this coming Saturday 6. Patient can follow-up with Clay Duke PA-C or Dr. Fidel Canada at [facility] in 2-3 weeks following discharge
--- NOTE | 2018-06-20 15:26 | P.PN ---
Subjective No cigarette in overnight events patient pain is better controlled and patient did pass gas does have bowel sounds do not move his bowels yet. Constitutional: Denied any fatigue denied any fever. Cardio vascular: denied any chest pain, palpitations Gastrointestinal denied any nausea vomiting Pulmonary: Denied any shortness of breath cough Neurologic denied any new focal deficits All inpatient medications were reviewed and appropriate changes in these medications as dictated in the interval history and assessment and plan. Objective - Vital Signs Vital signs: Vital Signs Temp 98.0 F 06/20/18 07:45 Pulse 100 06/20/18 07:45 Resp 16 06/20/18 07:45 BP 117/64 06/20/18 07:45 Pulse Ox 97 06/20/18 07:45 Intake & Output 06/19/18 06/20/18 06/20/18 18:59 06:59 18:59 Intake Total 625 600 600 Output Total 780 300 Balance -155 600 300 Intake: Intake, IV Titration 625 600 600 Amount Sodium Chloride 0.9% 1, 625 600 600 000 ml @ 75 mls/hr IV . [id number] [facility] Rx#:[id number] Output: Urine 780 300 Uretheral (Flowers) 500 Other: Voiding Method Urinal Urinal # Voids 1 1 - Exam PHYSICAL EXAMINATION: GENERAL: The patient is alert and oriented x3, not in any acute distress. Well developed, well nourished. HEENT: Pupils are round and equally reacting to light. EOMI. No scleral icterus. No conjunctival pallor. Normocephalic, atraumatic. No pharyngeal erythema. No thyromegaly. CARDIOVASCULAR: S1 and S2 present. No murmurs, rubs, or gallops. PULMONARY: Chest is clear to auscultation, no wheezing or crackles. ABDOMEN: Soft, nontender, nondistended, sluggish bowel sounds MUSCULOSKELETAL: Deferred to orthopedic surgery EXTREMITIES: No cyanosis, clubbing, or pedal edema. NEUROLOGICAL: Gross neurological examination did not reveal any focal deficits. SKIN: No rashes. - Labs CBC & Chem 7: 06/20/18 08:28 06/19/18 07:18 Labs: Abnormal Lab Results - Last 24 Hours (Table) 06/20/18 06/20/18 Range/Units 07:07 08:28 WBC 18.4 H (3.8-10.6) k/uL RBC 3.95 L (4.30-5.90) m/uL Hgb 11.8 L (13.0-17.5) gm/dL Hct 36.3 L (39.0-53.0) % Neutrophils # 15.4 H (1.3-7.7) k/uL POC Glucose (mg/dL) 128 H (75-99) mg/dL Assessment and Plan Plan: -Leukocytosis reactive and there is no evidence of infection from antibiotics redness at this time we'll closely monitor for any fevers incentive spirometry -Tachycardia: Secondary to pain patient will be continued on IV fluids, improved now -Mild acute renal failure continue IV fluids and repeat CBC and a basic metabolic profile tomorrow -Hyperlipidemia --Sleep apnea continue with CPAP machine -Nicotine abuse: Counseling was provided patient only smokes about 5-6 cigarettes we'll use nicotine patch if needed -Depression continue with the Lexapro . -Benign essential tremor for which patient is on pramipexole which will be continued dvt prophylaxis as per primary service pain management as per primary service patient is status post laminectomy surgery as mentioned above postoperative day one
[2018-06-20 19:28] VITALS: RESP 16
[2018-06-20] MEDS: ATORVASTATIN 10 MG TAB PO SCH (21:28)
[2018-06-20] MEDS: PRAMIPEXOLE 0.5 MG TAB PO SCH (21:28)
[2018-06-21] MEDS: LACTATED RINGERS 1,000 ML IV SCH (03:37)
[2018-06-21] MEDS: HYDROcodone/APAP 5-325MG 1 EACH TAB PO PRN ×2 (04:20→08:56)
[2018-06-21] MEDS: NITROFURANTOIN MONOHYD/M-CRYST 100 MG CAP PO SCH (08:56)
[2018-06-21] MEDS: CHOLECALCIFEROL 1,000 UNIT TAB PO SCH (08:56)
[2018-06-21] MEDS: ESCITALOPRAM 10 MG TAB PO SCH (08:56)
[2018-06-21] MEDS: SENNOSIDES-DOCUSATE SODIUM 1 EACH TAB PO SCH (08:56)
[2018-06-21] MEDS: NICOTINE 7MG/24HR PATCH TRANSDERM SCH (08:56)
[2018-06-21] MEDS: ASPIRIN 81 MG PO SCH (08:56)
[2018-06-21 10:00] LABS: HCT 33.5 % (39.0-53.0); HGB 10.8 gm/dL (13.0-17.5); MCH 29.1 pg (25.0-35.0); MCHC 32.2 g/dL (31.0-37.0); MCV 90.3 fL (80.0-100.0); Mean Platelet Volume 7.7; Platelet Count 185 k/uL (150-450); RBC 3.71 m/uL (4.30-5.90); RDW 12.8 % (11.5-15.5); WBC 14.8 k/uL (3.8-10.6)
[2018-06-21 10:16] LABS: Anion Gap 5 mmol/L; Blood Urea Nitrogen 13 mg/dL (9-20); Calcium 8.6 mg/dL (8.4-10.2); Carbon Dioxide 28 mmol/L (22-30); Chloride 104 mmol/L (98-107); Glucose 114 mg/dL (74-99); Potassium 4.4 mmol/L (3.5-5.1); Sodium 137 mmol/L (137-145)
[2018-06-21] MEDS ORDERED: POLYETHYLENE GLYCOL 3350 17 GM POWD.PACK PO PRN (12:42)
--- NOTE | 2018-06-21 13:52 | P.DS ---
Providers Date of admission: 06/18/18 10:45 Attending physician: Denys Canada Consults: 06/18/18 15:54 Consult Physician Routine Consulting Provider: Mindy Prescott Consult Reason/Comments: medical management Do you want consulting provider notified?: Yes Primary care physician: Renetta Demarco [facility] Course: The patient presented on the day of admission as per their operative note. He underwent decompression and fusion for his spinal stenosis with herniated nucleus pulposis lower extremity radiculopathy. His pain is controlled initially with IV medicines and is making progress now with oral medicines. He is tolerating his diet and voiding freely is passing gas well and he feels his regular bowel movement. He is not having significant abdominal distention. He feels his legs are doing well. Physical Exam The incision site is clean dry and intact. There is no erythema no drainage. There is no purulence no evidence of infection. His back incision sites are clean dry and intact. There is no active drainage. There is no purulence. Abdomen soft and nontender. Chest has good excursion with deep inspiration and expiration. The patient has active and passive range of motion intact at the upper and lower extremities. There is no acute change in neurologic status. He has sustained dorsal flexion plantar flexion and EHL intact. Hospital Course Postoperative day #3 status post minimally invasive decompression and fusion for his lumbar spinal stenosis with herniated nucleus pulposis lower extremity radiculopathy and low back pain. The patient has been making good progress postoperatively. They have completed the prophylactic antibiotics without any signs or symptoms of infection. The patient has been able to advance their diet, and is tolerating diet adequately. The pain was initially controlled with IV medications and is now controlled appropriately with oral medications. The patient has been able to increase their mobilization. The patient has progressed appropriately. I think they are in good stable condition for discharge today with his family at home with him. They will be sent home with appropriate prescriptions for pain medicines as needed over the next 7 days. I answered their questions to the best of my ability in a language that they can understand and they are agreeable with the plan. They will follow up as directed in approximately 2 weeks or sooner if he is having any problems. Patient Condition at Discharge: Good Plan - Discharge Summary Discharge Rx Participant: No New Discharge Prescriptions: New Hydrocodone/Acetaminophen [[place] 5-325] 1 - 2 each PO Q6HR PRN #56 tab PRN Reason: Pain Sennosides-Docusate Sodium [Senokot-S] 1 each PO DAILY PRN #30 tab PRN Reason: Constipation Polyethylene Glycol 3350 [Miralax] 17 gm PO DAILY PRN #15 packet PRN Reason: Constipation Continue Nitrofurantoin Monohyd/M-Cryst [Macrobid] 100 mg PO Q12HR Albuterol Inhaler [Ventolin Hfa Inhaler] 2 puff INHALATION RT-BID PRN PRN Reason: Shortness Of Breath Cholecalciferol [Vitamin D3] 2,000 unit PO DAILY Aspirin [Adult Low Dose Aspirin EC] 81 mg PO DAILY Simvastatin [Zocor] 10 mg PO HS Pramipexole [Mirapex] 0.5 mg PO HS Escitalopram [Lexapro] 10 mg PO DAILY Hydrocodone/Acetaminophen [[place] 5-325] 1 tab PO BID PRN PRN Reason: Pain Naproxen [Naprosyn] 500 mg PO Q12HR PRN PRN Reason: Pain Cannabidiol (Cbd) Extract [Epidiolex] 1 applic TOPICAL DAILY Discharge Medication List Albuterol Inhaler [Ventolin Hfa Inhaler] 2 puff INHALATION RT-BID PRN 06/13/18 [ History] Aspirin [Adult Low Dose Aspirin EC] 81 mg PO DAILY 06/13/18 [History] Cannabidiol (Cbd) Extract [Epidiolex] 1 applic TOPICAL DAILY 06/13/18 [History] Cholecalciferol [Vitamin D3] 2,000 unit PO DAILY 06/13/18 [History] Escitalopram [Lexapro] 10 mg PO DAILY 06/13/18 [History] Hydrocodone/Acetaminophen [[place] 5-325] 1 tab PO BID PRN 06/13/18 [History] Naproxen [Naprosyn] 500 mg PO Q12HR PRN 06/13/18 [History] Nitrofurantoin Monohyd/M-Cryst [Macrobid] 100 mg PO Q12HR 06/13/18 [History] Pramipexole [Mirapex] 0.5 mg PO HS 06/13/18 [History] Simvastatin [Zocor] 10 mg PO HS 06/13/18 [History] Hydrocodone/Acetaminophen [[place] 5-325] 1 - 2 each PO Q6HR PRN #56 tab 06/20/18 [Rx] Polyethylene Glycol 3350 [Miralax] 17 gm PO DAILY PRN #15 packet 06/21/18 [Rx] Sennosides-Docusate Sodium [Senokot-S] 1 each PO DAILY PRN #30 tab 06/21/18 [Rx] Follow up Appointment(s)/Referral(s): [facility] [NON-STAFF] - As Needed Clay Duke PAC [PHYSICIAN BELL CLERK] - 2 Weeks (Please call office for appointment, office closed. Patient may follow-up with Clay Duke PA-C or Dr. Fidel Canada at [facility] in 2-3 weeks following discharge. ) [facility], [NON-STAFF] - As Needed Patient Instructions/Handouts: Lumbar Spinal Fusion (DC) Activity/Diet/Wound Care/Special Instructions: 1. Patient may shower with Tegaderm dressing intact. 2. Patient may remove Tegaderm dressing in 3 days and shower without a dressing at that time. 3. Patient should keep Steri-Strips intact and allow them to fall off naturally. 4. Patient should refrain from driving until at least after their first follow- up appointment in the office. 5. Patient should avoid excessive bending, twisting, and lifting; no lifting greater than 10 pounds 6. Take medications as prescribed 7. Do not soak in tub Discharge Disposition: HOME SELF-CARE
[2018-06-21 14:08] VITALS: BP 156/81; PULSE 92; TEMP 98.9
--- NOTE | 2018-06-21 15:01 | P.PN ---
Subjective No significant in overnight events patient pain is better controlled and patient did pass gas does have bowel sounds do not move his bowels yet. 06/21/2018 Patient did not move his bowel yet does have good bowel sounds it pass gas, patient can be discharged from medical perspective. I do not believe patient will need any antibiotics but I'll let the primary care physician decide about nitrofurantoin. His leukocytosis significantly improved Constitutional: Denied any fatigue denied any fever. Cardio vascular: denied any chest pain, palpitations Gastrointestinal denied any nausea vomiting Pulmonary: Denied any shortness of breath cough Neurologic denied any new focal deficits All inpatient medications were reviewed and appropriate changes in these medications as dictated in the interval history and assessment and plan. Objective - Vital Signs Vital signs: Vital Signs Temp 98.9 F 06/21/18 14:07 Pulse 92 06/21/18 14:07 Resp 16 06/21/18 14:07 BP 156/81 06/21/18 14:07 Pulse Ox 94 L 06/21/18 14:07 Intake & Output 06/20/18 06/21/18 06/21/18 18:59 06:59 18:59 Intake Total 600 600 Output Total 300 700 325 Balance 300 -100 -325 Intake: Intake, IV Titration 600 600 Amount Sodium Chloride 0.9% 1, 600 600 000 ml @ 75 mls/hr IV . [id number] [facility] Rx#:[id number] Output: Urine 300 700 325 Other: Voiding Method Urinal # Voids 1 - Exam PHYSICAL EXAMINATION: GENERAL: The patient is alert and oriented x3, not in any acute distress. Well developed, well nourished. HEENT: Pupils are round and equally reacting to light. EOMI. No scleral icterus. No conjunctival pallor. Normocephalic, atraumatic. No pharyngeal erythema. No thyromegaly. CARDIOVASCULAR: S1 and S2 present. No murmurs, rubs, or gallops. PULMONARY: Chest is clear to auscultation, no wheezing or crackles. ABDOMEN: Soft, nontender, nondistended, sluggish bowel sounds MUSCULOSKELETAL: Deferred to orthopedic surgery EXTREMITIES: No cyanosis, clubbing, or pedal edema. NEUROLOGICAL: Gross neurological examination did not reveal any focal deficits. SKIN: No rashes. - Labs CBC & Chem 7: 06/21/18 09:10 06/21/18 09:10 Labs: Abnormal Lab Results - Last 24 Hours (Table) 06/21/18 06/21/18 Range/Units 09:10 09:10 WBC 14.8 H (3.8-10.6) k/uL RBC 3.71 L (4.30-5.90) m/uL Hgb 10.8 L (13.0-17.5) gm/dL Hct 33.5 L (39.0-53.0) % Glucose 114 H (74-99) mg/dL Assessment and Plan Plan: -Leukocytosis reactive and there is no evidence of infection from antibiotics redness at this time we'll closely monitor for any fevers incentive spirometry -Tachycardia: Secondary to pain patient will be continued on IV fluids, improved now -Mild acute renal failure continue IV fluids and repeat CBC and a basic metabolic profile tomorrow -Hyperlipidemia --Sleep apnea continue with CPAP machine -Nicotine abuse: Counseling was provided patient only smokes about 5-6 cigarettes we'll use nicotine patch if needed -Depression continue with the Lexapro . -Benign essential tremor for which patient is on pramipexole which will be continued dvt prophylaxis as per primary service pain management as per primary service patient is status post laminectomy surgery as mentioned above postoperative day one
== END 2018-06-21 15:00 | disposition home health service (06) | DRG 454 ==
LOC: 2ORMAIN 10:45 → 4SSUR 16:44
PROVIDERS: ADMIT Orthopaedic Surgery Orthopaedic Surgery of the Spine; ATTEND Orthopaedic Surgery Orthopaedic Surgery of the Spine
PROC: 0SG30A0 Fusion of Lumbosacral Joint with Interbody Fusion Device, Anterior Approach, Anterior Column, Open Approach (ICD-10-PCS; principal; 2018-06-18 13:40)
PROC: 0SG3071 Fusion of Lumbosacral Joint with Autologous Tissue Substitute, Posterior Approach, Posterior Column, Open Approach (ICD-10-PCS; principal; 2018-06-18 13:40)
PROC: 0ST20ZZ Resection of Lumbar Vertebral Disc, Open Approach (ICD-10-PCS; principal; 2018-06-18 13:40)
PROC: 0ST40ZZ Resection of Lumbosacral Disc, Open Approach (ICD-10-PCS; principal; 2018-06-18 13:40)
PROC: 0SG00AJ Fusion of Lumbar Vertebral Joint with Interbody Fusion Device, Posterior Approach, Anterior Column, Open Approach (ICD-10-PCS; principal; 2018-06-18 13:40)
PROC: 07DS3ZZ Extraction of Vertebral Bone Marrow, Percutaneous Approach (ICD-10-PCS; principal; 2018-06-18 13:40)
PROC: 0SG0071 Fusion of Lumbar Vertebral Joint with Autologous Tissue Substitute, Posterior Approach, Posterior Column, Open Approach (ICD-10-PCS; principal; 2018-06-18 13:40)
DX: M48.062 Spinal stenosis, lumbar region with neurogenic claudication (principal); N17.9 Acute kidney failure, unspecified; M51.16 Intervertebral disc disorders with radiculopathy, lumbar region; M51.17 Intervertebral disc disorders with radiculopathy, lumbosacral region; M48.07 Spinal stenosis, lumbosacral region; M25.78 Osteophyte, vertebrae; E78.5 Hyperlipidemia, unspecified; R63.5 Abnormal weight gain; F17.210 Nicotine dependence, cigarettes, uncomplicated; M47.27 Other spondylosis with radiculopathy, lumbosacral region; Z68.35 Body mass index [BMI] 35.0-35.9, adult; D72.829 Elevated white blood cell count, unspecified; G47.30 Sleep apnea, unspecified; G25.0 Essential tremor; M47.26 Other spondylosis with radiculopathy, lumbar region; M06.9 Rheumatoid arthritis, unspecified; E66.9 Obesity, unspecified; F32.9 Major depressive disorder, single episode, unspecified; Z79.1 Long term (current) use of non-steroidal anti-inflammatories (NSAID); G25.81 Restless legs syndrome; Z71.6 Tobacco abuse counseling; Z79.899 Other long term (current) drug therapy; Z79.82 Long term (current) use of aspirin; Z85.038 Personal history of other malignant neoplasm of large intestine; Z90.49 Acquired absence of other specified parts of digestive tract; Z88.0 Allergy status to penicillin; Z83.3 Family history of diabetes mellitus; Z82.49 Family history of ischemic heart disease and other diseases of the circulatory system; Z82.0 Family history of epilepsy and other diseases of the nervous system; Z80.9 Family history of malignant neoplasm, unspecified
CPT/HCPCS: 72100; 80048; 85025; 85027; 86850; 86891; 86900; 86901; 94760

== ENCOUNTER 2019-04-02 08:14 | Day surgery (SDC) | payer MEDICARE, BC ==
[2019-03-31 13:38] VITALS: BMI 32.9
[~2019-04-02 08:14] MED LIST changes: -BACITRACIN 50,000 UNIT, POLYMYXIN B 500,000 UNIT in SODIUM CHLORIDE 0.9% IRRIGATIO 1,00... IRRIGATION ONE; -DEXAMETHASONE SOD PHOSPHATE 10 MG/ML 1 ML VIAL IV ONE; -HYDROmorphone 0.5 MG/0.5 ML SYRINGE IVP PRN; +LACTATED RINGERS 1,000 ML IV SCH; +LIDOCAINE 1% 20 ML VIAL (10MG/ML) FOR IV START INTRADERMA PRN; -MIDAZOLAM (PF) 2 MG/2 ML VIAL IV PRN; -ONDANSETRON 4 MG/2 ML VIAL IVP ONE; -SCOPOLAMINE 1.5MG/72HR PATCH TRANSDERM ONE; -ceFAZolin IN SWFI 2 GM/20 ML SYRINGE IVP ONE
[2019-04-02 08:32] VITALS: RESP 16; TEMP 96.8
[2019-04-02] MEDS ORDERED: PROPOFOL 10 MG/ML 20 ML VIAL IV ONE (09:04)
--- NOTE | 2019-04-02 09:25 | P.PCN ---
Date of Procedure: 04/02/19 Description of Procedure: BRIEF HISTORY: Patient is a 64-year-old pleasant male scheduled for an elective colonoscopy as a part of positive cologard testing in the outpatient setting. Patient denies any change in bowel habits or family history of colon cancer. Last colonoscopy approximately 9 years ago. He does believe he has polyps on prior colonoscopies. PROCEDURE PERFORMED: Aborted/failed Colonoscopy. PREOPERATIVE DIAGNOSIS: Positive Cologard, last colonoscopy approximately 9 years ago. ESTIMATED BLOOD LOSS: Minimal. IV sedation per Anesthesia. PROCEDURE: After informed consent was obtained, the patient, was brought into the endoscopy unit. IV sedation was administered by Anesthesia under continuous monitoring. Digital rectal examination was normal. Initially the Olympus CF-190 flexible video colonoscope was then inserted in the rectum, and stool was noted throughout the entire rectum and sigmoid colon. Stool was formed. Unsure if patient prepped at all for the procedure. Procedure had to be aborted at this time due to the poor prep. Patient tolerated the procedure well. IMPRESSION: Failed/aborted colonoscopy secondary to a poor prep with stool noted throughout the entire visualized colon. RECOMMENDATIONS: Findings of this examination were discussed with the patient and his . Okay to resume diet and medications. Patient will need repeat colonoscopy with two- day prep.
[2019-04-02 09:42] VITALS: BP 111/68; PULSE 91
== END 2019-04-02 09:57 | disposition home or self-care (01) ==
LOC: ORWHC2ENDO 08:14
PROVIDERS: ATTEND Internal Medicine
DX: R19.5 Other fecal abnormalities (principal); Z85.038 Personal history of other malignant neoplasm of large intestine; F17.210 Nicotine dependence, cigarettes, uncomplicated; E78.5 Hyperlipidemia, unspecified; G25.81 Restless legs syndrome; Z79.1 Long term (current) use of non-steroidal anti-inflammatories (NSAID); Z79.82 Long term (current) use of aspirin; Z79.899 Other long term (current) drug therapy; Z88.0 Allergy status to penicillin; Z88.8 Allergy status to other drugs, medicaments and biological substances
CPT/HCPCS: 45330; J2704

== ENCOUNTER 2021-11-26 17:48 | Emergency (ER) | payer BC, MEDICARE ==
[2021-11-26 18:32] VITALS: TEMP 97.8
--- NOTE | 2021-11-26 18:33 | ED ---
Extremity Problem HPI - General Stated complaint: Possible blood clot, sent by Time Seen by Provider: 11/26/21 18:28 Source: RN notes reviewed - History of Present Illness Initial comments: Patient percents of bilateral lower extremity edema for the past 2 weeks. Patient denying any chest pain or shortness of breath. No history of congestive heart.. No history of blood clots. No history of renal failure. No fever or chills. Patient complaining of tight pain to both lower extremities. No injury. No headache, no fever or chills, no changes in vision or hearing, no sore throat or difficulty with speech, no neck pain, no chest pain or shortness of breath, no abdominal pain, no nausea or vomiting, no changes in urination or bowel movements, no numbness or tingling,, no skin rashes or lesions. MD Complaint: extremity pain, extremity swelling - Related Data Home Medications Medication Instructions Recorded Confirmed Albuterol Inhaler [Ventolin Hfa 2 puff INHALATION RT-Q6H PRN 06/13/18 11/26/21 Inhaler] Pramipexole [Mirapex] 1 mg PO HS 06/13/18 11/26/21 Simvastatin [Zocor] 10 mg PO HS 06/13/18 11/26/21 Aspirin [Adult Low Dose Aspirin EC] 81 mg PO HS 03/31/19 11/26/21 Acetaminophen Tab [Tylenol Tab] 1,000 mg PO Q6HR PRN 11/26/21 11/26/21 Escitalopram [Lexapro] 20 mg PO HS 11/26/21 11/26/21 Previous Rx's Medication Instructions Recorded Furosemide [Lasix] 20 mg PO DAILY #30 11/26/21 Potassium Chloride ER [K-Dur 10] 10 meq PO DAILY #30 tab 11/26/21 Allergies Allergy/AdvReac Type Severity Reaction Status Date / Time amoxicillin Allergy Rash/Hives Verified 11/26/21 21:36 Review of Systems ROS Statement: Those systems with pertinent positive or pertinent negative responses have been documented in the HPI. ROS Other: All systems not noted in ROS Statement are negative. Past Medical History Past Medical History: Hyperlipidemia Additional Past Medical History / Comment(s): states positive cologaurd, states hx of cancerous colon polyps, Restless leg, states occasionally SOB History of Any Multi-Drug Resistant Organisms: None Reported Past Surgical History: Appendectomy, Back Surgery, Orthopedic Surgery Additional Past Surgical History / Comment(s): Bilateral shoulder surgery, right elbow, right knee Past Anesthesia/Blood Transfusion Reactions: No Reported Reaction Past Psychological History: No Psychological Hx Reported Past Alcohol Use History: None Reported Additional Past Alcohol Use History / Comment(s): started smoking age 6, cut down to about 3-4cigarettes daily, had been up to 4 PPD Past Drug Use History: None Reported Additional Drug Use History / Comment(s): CBD - Past Family History Father Family Medical History: Cancer Mother Family Medical History: Cancer General Exam General appearance: alert, in no apparent distress Head exam: Present: atraumatic, normocephalic, normal inspection Eye exam: Present: normal appearance, PERRL, EOMI. Absent: scleral icterus, conjunctival injection, periorbital swelling ENT exam: Present: normal exam, mucous membranes moist Neck exam: Present: normal inspection, full ROM. Absent: tenderness, meningismus, lymphadenopathy Respiratory exam: Present: normal lung sounds bilaterally. Absent: respiratory distress, wheezes, rales, rhonchi, stridor Cardiovascular Exam: Present: regular rate, normal rhythm, normal heart sounds. Absent: systolic murmur, diastolic murmur, rubs, gallop, clicks GI/Abdominal exam: Present: soft, normal bowel sounds. Absent: distended, tenderness, guarding, rebound, rigid Extremities exam: Present: normal inspection, full ROM, normal capillary refill, pedal edema. Absent: tenderness, joint swelling, calf tenderness Back exam: Present: normal inspection Neurological exam: Present: alert, oriented X3, CN II-XII intact Psychiatric exam: Present: normal affect, normal mood Skin exam: Present: warm, dry, intact, normal color. Absent: rash Course Vital Signs 11/26/21 11/26/21 18:28 21:00 Temperature 97.8 F Pulse Rate 90 85 Respiratory 20 16 Rate Blood Pressure 104/63 127/74 O2 Sat by Pulse 98 95 Oximetry - Reevaluation(s) Reevaluation #1: 11/26/21 21:59 Medical record is reviewed Symptoms are improved here in the emergency department Patient is informed of results and questions answered Patient in no distress Medical Decision Making - Medical Decision Making Patient presents with peripheral edema. No respiratory distress. No chest pain. No evidence of infectious process. Venous Doppler is negative for DVT. Cardiac workup did reveal elevated BNP but no definitive evidence of CHF on chest x-ray. Remainder of the workup was essentially negative with a negative troponin. EKG showed nonspecific changes without evidence of acute changes. No comparison study. Discussed all findings with the patient. I'm going to treat the patient with Lasix for dependent edema. Discussed conservative measures as well. We'll supplement potassium. Patient to see his regular physician within next 1-2 days. I told him to call at 8 AM tomorrow morning for an appointment. Patient was told to return to the ER for any signs or symptoms worsen. Told to return immediately if any other problems arise. All questions answered. Aminata tment plan discussed. Patient in agreement Every effort has been made to ensure accuracy of this dictation. However, due to the limitations of electronic medical records and dictation devices, errors in charting still occur. The case was discussed in detail with ED attending physician. Presentation, findings, treatment plan discussed in detail. Dr. Weinstein - Lab Data Result diagrams: 11/26/21 19:15 11/26/21 19:15 Lab Results 11/26/21 11/26/21 11/26/21 Range/Units 19:15 19:15 19:15 WBC 10.0 (3.8-10.6) k/uL RBC 4.59 (4.30-5.90) m/uL Hgb 13.8 (13.0-17.5) gm/dL Hct 40.5 (39.0-53.0) % MCV 88.4 (80.0-100.0) fL MCH 30.1 (25.0-35.0) pg MCHC 34.0 (31.0-37.0) g/dL RDW 13.4 (11.5-15.5) % Plt Count 241 (150-450) k/uL MPV 7.8 Neutrophils % 59 % Lymphocytes % 24 % Monocytes % 6 % Eosinophils % 8 % Basophils % 1 % Neutrophils # 5.9 (1.3-7.7) k/uL Lymphocytes # 2.4 (1.0-4.8) k/uL Monocytes # 0.6 (0-1.0) k/uL Eosinophils # 0.8 H (0-0.7) k/uL Basophils # 0.1 (0-0.2) k/uL Sodium 138 (137-145) mmol/L Potassium 4.4 (3.5-5.1) mmol/L Chloride 103 (98-107) mmol/L Carbon Dioxide 29 (22-30) mmol/L Anion Gap 6 mmol/L BUN 16 (9-20) mg/dL Creatinine 1.13 (0.66-1.25) mg/dL Est GFR (CKD-EPI)AfAm 77 (>60 ml/min/1.73 sqM) Est GFR (CKD-EPI)NonAf 67 (>60 ml/min/1.73 sqM) Glucose 107 H (74-99) mg/dL Plasma Lactic Acid Nav 1.3 (0.7-2.0) mmol/L Calcium 9.4 (8.4-10.2) mg/dL Phosphorus 4.1 (2.5-4.5) mg/dL Magnesium 2.1 (1.6-2.3) mg/dL Total Bilirubin 0.4 (0.2-1.3) mg/dL AST 20 (17-59) U/L ALT 14 (4-49) U/L Alkaline Phosphatase 79 (38-126) U/L Troponin I (0.000-0.034) ng/mL NT-Pro-B Natriuret Pep pg/mL Total Protein 6.6 (6.3-8.2) g/dL Albumin 3.9 (3.5-5.0) g/dL Urine Color Urine Appearance (Clear) Urine pH (5.0-8.0) Ur Specific [place] (1.001-1.035) Urine Protein (Negative) Urine Glucose (UA) (Negative) Urine Ketones (Negative) Urine Blood (Negative) Urine Nitrite (Negative) Urine Bilirubin (Negative) Urine Urobilinogen (<2.0) mg/dL Ur Leukocyte Esterase (Negative) 11/26/21 11/26/21 11/26/21 Range/Units 19:15 19:15 21:48 WBC (3.8-10.6) k/uL RBC (4.30-5.90) m/uL Hgb (13.0-17.5) gm/dL Hct (39.0-53.0) % MCV (80.0-100.0) fL MCH (25.0-35.0) pg MCHC (31.0-37.0) g/dL RDW (11.5-15.5) % Plt Count (150-450) k/uL MPV Neutrophils % % Lymphocytes % % Monocytes % % Eosinophils % % Basophils % % Neutrophils # (1.3-7.7) k/uL Lymphocytes # (1.0-4.8) k/uL Monocytes # (0-1.0) k/uL Eosinophils # (0-0.7) k/uL Basophils # (0-0.2) k/uL Sodium (137-145) mmol/L Potassium (3.5-5.1) mmol/L Chloride (98-107) mmol/L Carbon Dioxide (22-30) mmol/L Anion Gap mmol/L BUN (9-20) mg/dL Creatinine (0.66-1.25) mg/dL Est GFR (CKD-EPI)AfAm (>60 ml/min/1.73 sqM) Est GFR (CKD-EPI)NonAf (>60 ml/min/1.73 sqM) Glucose (74-99) mg/dL Plasma Lactic Acid Nav (0.7-2.0) mmol/L Calcium (8.4-10.2) mg/dL Phosphorus (2.5-4.5) mg/dL Magnesium (1.6-2.3) mg/dL Total Bilirubin (0.2-1.3) mg/dL AST (17-59) U/L ALT (4-49) U/L Alkaline Phosphatase (38-126) U/L Troponin I <0.012 (0.000-0.034) ng/mL NT-Pro-B Natriuret Pep 1610 pg/mL Total Protein (6.3-8.2) g/dL Albumin (3.5-5.0) g/dL Urine Color Light Yellow Urine Appearance Clear (Clear) Urine pH 6.5 (5.0-8.0) Ur Specific [place] 1.012 (1.001-1.035) Urine Protein Negative (Negative) Urine Glucose (UA) Negative (Negative) Urine Ketones Negative (Negative) Urine Blood Negative (Negative) Urine Nitrite Negative (Negative) Urine Bilirubin Negative (Negative) Urine Urobilinogen <2.0 (<2.0) mg/dL Ur Leukocyte Esterase Negative (Negative) - EKG Data EKG Comments: EKG done at 8:04 PM and read by the ED attending physician reveals sinus rhythm with a rate of 82, normal intervals, nonspecific ST and T-wave adamantly. No evidence of acute abnormality. Normal axis. Inverted T wave in aVF and lead 3. - Radiology Data Radiology results: report reviewed, image reviewed Disposition Clinical Impression: Dependent edema Disposition: HOME SELF-CARE Condition: Good Instructions (If sedation given, give patient instructions): Leg Edema (ED) Additional Instructions: Follow-up with your regular physician as directed. Return to the ER immediately if any symptoms worsen, new symptoms arise, or any other problems develop. Call your doctor tomorrow morning at 8 AM to schedule follow-up appointment within the next 1-2 days Prescriptions: Potassium Chloride ER [K-Dur 10] 10 meq PO DAILY #30 tab Furosemide [Lasix] 20 mg PO DAILY #30 Is patient prescribed a controlled substance at d/c from ED?: No Referrals: Renetta Colon III, MD [Primary Care Provider] - 1-2 days Time of Disposition: 22:01
[2021-11-26 19:31] LABS: Basophils # (A) 0.1 k/uL (0-0.2); Basophils % (A) 1 %; Eosinophils # (A) 0.8 k/uL (0-0.7); Eosinophils % (A) 8 %; HCT 40.5 % (39.0-53.0); HGB 13.8 gm/dL (13.0-17.5); Lymphocytes # (A) 2.4 k/uL (1.0-4.8); Lymphocytes % (A) 24 %; MCH 30.1 pg (25.0-35.0); MCV 88.4 fL (80.0-100.0); Mean Platelet Volume 7.8; Monocytes # (A) 0.6 k/uL (0-1.0); Monocytes % (A) 6 %; Neutrophils # (A) 5.9 k/uL (1.3-7.7); Neutrophils % (A) 59 %; Platelet Count 241 k/uL (150-450); RBC 4.59 m/uL (4.30-5.90); RDW 13.4 % (11.5-15.5)
--- NOTE | 2021-11-26 19:49 | US ---
EXAMINATION TYPE: US venous doppler duplex LE DATE OF EXAM: 11/26/2021 6:32 PM COMPARISON: CLINICAL HISTORY: Bilateral lower extremities edema. No hx blood thinners. Not on blood thinners. SIDE PERFORMED: Bilateral TECHNIQUE: The lower extremity deep venous system is examined utilizing real time linear array sonog adina with graded compression, doppler sonography and color-flow sonography. VESSELS IMAGED: Common Femoral Vein Deep Femoral Vein Greater Saphenous Vein * Femoral Vein Popliteal Vein Small Saphenous Vein * Proximal Calf Veins (* superficial vessels) Right Leg: Negative for DVT Left Leg: Negative for DVT IMPRESSION: No evidence of deep vein thrombosis in both legs.
--- NOTE | 2021-11-26 20:04 | XR ---
EXAMINATION TYPE: XR chest 1V portable DATE OF EXAM: 11/26/2021 COMPARISON: 06/10/2018 HISTORY: Leg edema TECHNIQUE: FINDINGS: There is no heart failure nor confluent pneumonic infiltrate. Costophrenic angles are clear . There are no hilar masses. Bony thorax is intact. There is slight increased interstitial pulmonary density. IMPRESSION: No active cardiopulmonary disease. Mild pulmonary fibrosis.
[2021-11-26 20:17] LABS: Albumin 3.9 g/dL (3.5-5.0); Calcium 9.4 mg/dL (8.4-10.2); Magnesium 2.1 mg/dL (1.6-2.3); Phosphorus 4.1 mg/dL (2.5-4.5); Potassium 4.4 mmol/L (3.5-5.1); Total Bilirubin 0.4 mg/dL (0.2-1.3); Total Protein 6.6 g/dL (6.3-8.2)
[2021-11-26] MEDS ORDERED: FUROSEMIDE 10 MG/ML 4 ML VIAL IV STA (20:49)
[2021-11-26 21:08] VITALS: BP 127/74; PULSE 85; RESP 16
[2021-11-26 21:53] LABS: Appearance,Urine Clear (Clear); Bilirubin,Urine Negative (Negative); Blood,Urine Negative (Negative); Color,Urine Light Yellow; Glucose,Urine (UA) Negative (Negative); Ketones,Urine Negative (Negative); Leukocyte Esterase,Urine Negative (Negative); Nitrite,Urine Negative (Negative); PH, Urine 6.5 (5.0-8.0); Protein,Urine Negative (Negative); Specific Gravity,Urine 1.012 (1.001-1.035); Urobilinogen,Urine <2.0 mg/dL (<2.0)
== END 2021-11-26 22:12 | disposition home or self-care (01) ==
LOC: EC 17:48
DX: R60.0 Localized edema (principal); I10 Essential (primary) hypertension; Z79.82 Long term (current) use of aspirin; Z79.899 Other long term (current) drug therapy
CPT/HCPCS: 36415; 93005; 83880; 80053; 83605; 83735; 84100; 84484; 85025; 81003; 71045; 93970; 99284; 96374; J1940

== ENCOUNTER → 2022-01-16 | Outpatient (CLI) | payer MEDICARE ==
--- NOTE | 2022-01-16 13:47 | CT ---
EXAMINATION TYPE: CT abdomen pelvis w con CT DLP: 2089.10 mGycm, Automated exposure control for dose reduction was used. DATE OF EXAM: 01/16/2022 1:34 PM COMPARISON: None CLINICAL INDICATION:Male, 66 years old with history of R60.0 LOCALIZED EDEMA; Localized edema TECHNIQUE: Axial CT of the abdomen and pelvis. Sagittal and coronal reformats were created on a [employer] workstation. Contrast used:100 ml mL of Isovue 300 with IV Contrast, Oral contrast used: with Oral Contrast FINDINGS: LOWER CHEST: Right lower lobe medial partially calcified granuloma. Partially visualized right pulmon jaelyn hilum lymph nodes. The heart is mildly enlarged for size. ABDOMEN LIVER: Unremarkable GALLBLADDER AND BILE DUCTS: Unremarkable. PANCREAS: Unremarkable. SPLEEN: Unremarkable. ADRENAL GLANDS: Unremarkable. KIDNEYS AND URETERS: No evidence of hydronephrosis or renal calculus. The ureters are unremarkable. PELVIS BLADDER: Unremarkable REPRODUCTIVE: Coarse calcifications of the prostate gland are identified. ABDOMEN & PELVIS STOMACH AND BOWEL: No evidence of bowel obstruction. PERITONEUM: No evidence of pneumoperitoneum or free fluid. VASCULATURE: Mild atherosclerotic calcifications are present throughout the abdominal aorta and its b ranches. No evidence of aortic aneurysm. MUSCULOSKELETAL: No acute osseous abnormalities, fixation changes in the lower lumbar spine are noted . Involving L4-L5 and S1. Hardware appears intact. Discectomy at L4-L5 and L5-S1. LYMPH NODES: No gross evidence for lymphadenopathy. SOFT TISSUE/ABDOMINAL WALL: Left fat filled inguinal hernia. Small Fat-containing umbilical hernia. IMPRESSION: 1. No evidence for acute process. No evidence for edema or localized swelling. 2. Fat filled left inguinal and umbilical hernias.
== END | disposition home or self-care (01) ==
LOC: RADCTMAIN 11:20
PROVIDERS: ATTEND Family Medicine
DX: Z01.812 Encounter for preprocedural laboratory examination (principal); K42.9 Umbilical hernia without obstruction or gangrene; K40.90 Unilateral inguinal hernia, without obstruction or gangrene, not specified as recurrent
CPT/HCPCS: 82565; 84520; 74177; 36415; Q9967

== ENCOUNTER → 2022-10-03 | Outpatient (CLI) | payer MEDICARE ==
--- NOTE | 2022-10-06 11:45 | MR ---
EXAMINATION TYPE: MR brain and iac wo/w con DATE OF EXAM: 10/03/2022 COMPARISON: NONE HISTORY: 67-year-old male R27.0, Ataxia, falls, hearing loss, CVA. TECHNIQUE: Multiplanar, multisequence images of the brain and brainstem were acquired before and aft er administration of 12 mL IV Gadavist. Diffusion weighted imaging was performed. Additional coned- down sequences through the internal auditory canals and posterior cranial fossa before and after IV c ontrast administration. FINDINGS: Diffusion weighted images demonstrate no evidence of an acute ischemic lesion in the brain. T2/FLAIR weighted sequences show moderate patchy and scattered bright signal changes in the white mat ter of both cerebral hemispheres, consistent joint changes subcortical posterior left frontal lobe an d bilateral paramedian [place]lsea. Old lacunar infarct left thalamus also noted. Midline structures show normal morphology. The craniocervical junction is normal. There is mild to moderate generalized supratentorial volume loss with secondary mild prominence to th e ventricular system. There is no evidence of an acute intracranial hemorrhage, infarct, mass, mass-effect or an extra-axia l fluid collection. There is no cerebellopontine angle mass. The internal auditory canals are symmetric. Brainstem and skull base abnormalities are not seen. Post contrast images demonstrate no evidence of pathologic enhancement in the posterior cranial tanner a or the internal auditory canals. There is no abnormal enhancement of the labyrinths. Moderate to severe the ethmoid air cells. Small amount of fluid within the inferior right mastoid air cells. Globes are intact. IMPRESSION: 1. [id number] generalized cerebral atrophy. No acute intracranial abnormality seen. 2. Moderate patchy and scattered T2 bright white matter change, nonspecific, likely relating to chron ic small vessel ischemic disease. Additional old lacunar infarct in the left thalamus. Other differen tial considerations include chronic hypertension and demyelinating disease. 3. Small amount of fluid within the inferior right mastoid air cells, of questionable clinical signif icance. Correlate for any mastoid pain to exclude mastoiditis. 4. Otherwise, no specific abnormality on acoustic MRI. 5. Moderate to severe chronic ethmoid sinus disease.
== END | disposition home or self-care (01) ==
LOC: RADMRIMAIN 13:58
PROVIDERS: ATTEND Psychiatry & Neurology Neurology
DX: I67.9 Cerebrovascular disease, unspecified (principal); G31.9 Degenerative disease of nervous system, unspecified; R90.82 White matter disease, unspecified; J32.2 Chronic ethmoidal sinusitis; R27.0 Ataxia, unspecified
CPT/HCPCS: 70553; A9585

== ENCOUNTER → 2022-11-06 | Outpatient (CLI) | payer MEDICARE ==
[2022-11-07 05:23] LABS: Basophils # (A) 0.08 X 10*3/uL (0.00-0.10); Basophils % (A) 0.8 %; Eosinophils # (A) 0.36 X 10*3/uL (0.04-0.35); Eosinophils % (A) 3.7 %; HCT 46.6 % (39.6-50.0); HGB 14.3 d/dL (12.0-15.0); Lymphocytes # (A) 2.98 X 10*3/uL (0.90-5.00); Lymphocytes % (A) 30.6 %; MCHC 30.7 d/dL (32.0-37.0); MCV 97.9 FL (80.0-97.0); Mean Platelet Volume 10.9 FL (9.5-12.2); Monocytes # (A) 0.91 X 10*3/uL (0.20-1.00); Monocytes % (A) 9.3 %; NRBC Per 100 WBC 0 X 10*3/uL (0.00-0.01); Neutrophils # (A) 5.39 X 10*3/uL (1.80-7.70); Neutrophils % (A) 55.3 %; Platelet Count 236 X 10*3/uL (140-440); RBC 4.76 X 10*6/uL (4.40-5.60); RDW 14.7 % (11.5-14.5); WBC 9.75 X 10*3/uL (4.50-10.00)
[2022-11-07 12:21] LABS: BUN/Creat Ratio 14.08 Ratio (12.00-20.00); Blood Urea Nitrogen 18.3 mg/dL (9.0-27.0); Calcium 9.5 mg/dL (8.7-10.3); Carbon Dioxide 26.7 mmol/L (21.6-31.8); Chloride 103 mmol/L (96-109); Glucose 90 mg/dL (70-110); Potassium 4.7 mmol/L (3.5-5.5); Sodium 141 mmol/L (135-145)
== END | disposition home or self-care (01) ==
LOC: LABWHC1 13:04
PROVIDERS: ATTEND Psychiatry & Neurology Neurology
DX: I63.9 Cerebral infarction, unspecified (principal); G62.9 Polyneuropathy, unspecified; R26.89 Other abnormalities of gait and mobility; R73.9 Hyperglycemia, unspecified
CPT/HCPCS: 36415; 80048; 82607; 83036; 84439; 84443; 85025

== ENCOUNTER 2022-11-27 20:55 | Observation (INO) | payer MEDICARE ==
--- NOTE | 2022-11-27 21:04 | ED ---
General Adult HPI - General Stated complaint: Altered Time Seen by Provider: 11/27/22 21:00 Source: patient, EMS, RN notes reviewed Mode of arrival: EMS Limitations: altered mental status - History of Present Illness Initial comments: Patient is a pleasant 67-year-old male presenting to the emergency department by EMS for concern for altered/surge speech. Onset of symptoms was 1929. witnessed patient less responsive with slurred speech. Patient admits to feeling drowsy. EMS states patient has slightly improved since original evaluation. Patient denies any weakness. Patient denies confusion. Unclear if history of similar symptoms previously. - Related Data Home Medications Medication Instructions Recorded Confirmed Albuterol Inhaler [Ventolin Hfa 2 puff INHALATION RT-Q6H PRN 06/13/18 11/26/21 Inhaler] Pramipexole [Mirapex] 1 mg PO HS 06/13/18 11/26/21 Simvastatin [Zocor] 10 mg PO HS 06/13/18 11/26/21 Aspirin [Adult Low Dose Aspirin EC] 81 mg PO HS 03/31/19 11/26/21 Acetaminophen Tab [Tylenol Tab] 1,000 mg PO Q6HR PRN 11/26/21 11/26/21 Escitalopram [Lexapro] 20 mg PO HS 11/26/21 11/26/21 Previous Rx's Medication Instructions Recorded Furosemide [Lasix] 20 mg PO DAILY #30 11/26/21 Potassium Chloride ER [K-Dur 10] 10 meq PO DAILY #30 tab 11/26/21 Allergies Allergy/AdvReac Type Severity Reaction Status Date / Time amoxicillin Allergy Rash/Hives Verified 11/26/21 21:36 Review of Systems ROS Statement: Those systems with pertinent positive or pertinent negative responses have been documented in the HPI. ROS Other: All systems not noted in ROS Statement are negative. Constitutional: Denies: fever Eyes: Denies: eye pain ENT: Denies: ear pain Respiratory: Denies: cough Cardiovascular: Denies: chest pain Endocrine: Reports: fatigue Gastrointestinal: Denies: abdominal pain Genitourinary: Denies: dysuria Past Medical History Past Medical History: Hyperlipidemia Additional Past Medical History / Comment(s): states positive cologaurd, states hx of cancerous colon polyps, Restless leg, states occasionally SOB History of Any Multi-Drug Resistant Organisms: None Reported Past Surgical History: Appendectomy, Back Surgery, Orthopedic Surgery Additional Past Surgical History / Comment(s): Bilateral shoulder surgery, right elbow, right knee Past Anesthesia/Blood Transfusion Reactions: No Reported Reaction Past Psychological History: No Psychological Hx Reported Past Alcohol Use History: None Reported Additional Past Alcohol Use History / Comment(s): started smoking age 6, cut down to about 3-4cigarettes daily, had been up to 4 PPD Past Drug Use History: None Reported Additional Drug Use History / Comment(s): CBD - Past Family History Father Family Medical History: Cancer Mother Family Medical History: Cancer General Exam Limitations: no limitations General appearance: other (Drowsy but arousable to loud voice) Head exam: Present: atraumatic, normocephalic Eye exam: Present: normal appearance, PERRL, EOMI ENT exam: Present: normal oropharynx Neck exam: Present: normal inspection. Absent: meningismus Respiratory exam: Present: normal lung sounds bilaterally Cardiovascular Exam: Present: regular rate, normal rhythm GI/Abdominal exam: Present: soft. Absent: tenderness Extremities exam: Present: normal inspection Neurological exam: Present: CN II-XII intact. Absent: motor sensory deficit Expanded Neurological exam: Present: inattentive, protecting the airway, other (Slurred speech) Patient oriented to: Present: person, place, time Cranial nerves: EOM's Intact: Normal, Facial Sensation: Normal Sensory exam: Upper Extremity Light Touch: Normal, Lower Extremity Light Touch: Normal Motor strength exam: RUE: 5, LUE: 5, RLE: 5, LLE: 5 Eye Response: (3) open to voice Motor Response: (6) obeys commands Verbal Response: (5) oriented Psychiatric exam: Present: normal affect, normal mood Skin exam: Present: normal color Course Vital Signs 11/27/22 20:56 Pulse Rate 84 Respiratory 18 Rate Blood Pressure 126/85 - Reevaluation(s) Reevaluation #1: 11/27/22 21:[address] Reyna who agrees patient is not a TPA candidate. Risks felt to outweigh the benefits. Patient does not have clear-cut presentation of stroke. EKG Findings - EKG Results: EKG: interpreted by ERMD, sinus rhythm, normal axis, normal QRS, normal ST/T Medical Decision Making - Medical Decision Making Was pt. sent in by a medical professional or institution (LEEROY Crawford, POLICYHOLDER INFORMATION CLERK, urgent care, hospital, or skilled nursing...) When possible be specific @ -No Did you speak to anyone other than the patient for history (EMS, parent, family, police, friend...)? What history was obtained from this source @ -EMS provides majority of history is patient is drowsy and a poor historian Did you review nursing and triage notes (agree or disagree)? Why? @ -I reviewed and agree with nursing and triage notes Were old charts reviewed (outside hosp., previous admission, EMS record, old EKG, old radiological studies, urgent care reports/EKG's, skilled nursing records)? Report findings @ -No old charts were reviewed Differential Diagnosis (chest pain, altered mental status, abdominal pain women, abdominal pain men, vaginal bleeding, weakness, fever, dyspnea, syncope, headache, dizziness, GI bleed, back pain, seizure, CVA, palpatations, mental health, musculoskeletal)? @ -Differential Altered Mental Status: Hypoglycemia, DKA, hypercapnia, ETOH, overdose, CO poisoning, trauma, myxedema coma, HTN encephalopathy, infection, encephalitis, psychosis, intercranial hemorrhage, hepatic encephalopathy, meningitis, CVA, this is not meant to be an all-inclusive list EKG interpreted by me (3pts min.). @ -As above X-rays interpreted by me (1pt min.). @ -Chest x-ray does not reveal acute abnormality. CT interpreted by me (1pt min.). @ -CT brain does not reveal acute large hemorrhage or mass U/S interpreted by me (1pt. min.). @ -None done What testing was considered but not performed or refused? (CT, X-rays, U/S, labs)? Why? @ -None What meds were considered but not given or refused? Why? @ -Consider tPA however patient has not felt to be definitive CVA and therefore not a candidate Did you discuss the management of the patient with other professionals (professionals i.e. LEEROY Crawford, POLICYHOLDER INFORMATION CLERK, lab, RT, psych nurse, adoption social worker, biosolids management technician, teacher, food safety officer, embedded case manager)? Give summary @ -Case was discussed with practitioner Jake Willard who will admit Was smoking cessation discussed for >3mins.? @ -No Was critical care preformed (if so, how long)? @ -No Were there social determinants of health that impacted care today? How? (Homelessness, low income, unemployed, alcoholism, drug addiction, transportation, low edu. Level, literacy, decrease access to med. care, correction, rehab)? @ -No Was there de-escalation of care discussed even if they declined (Discuss DNR or withdrawal of care, Hospice)? DNR status @ -No What co-morbidities impacted this encounter? (DM, HTN, Smoking, COPD, CAD, Cancer, CVA, ARF, Chemo, Hep., AIDS, mental health diagnosis, sleep apnea, morbid obesity)? @ -None Was patient admitted / discharged? Hospital course, mention meds given and route, prescriptions, significant lab abnormalities, going to OR and other pertinent info. @ -Patient reevaluated and mildly improved. Family is present and helps provide further history. Patient and family updated. Patient will be admitted with neurology evaluation Undiagnosed new problem with uncertain prognosis? @ -Patient has undiagnosed new problem with uncertain prognosis Drug Therapy requiring intensive monitoring for toxicity (Heparin, Nitro, Insulin, Cardizem)? @ -No Were any procedures done? @ -No Diagnosis/symptom? @ -Altered mental status Acute, or Chronic, or Acute on Chronic? @ -Acute Uncomplicated (without systemic symptoms) or Complicated (systemic symptoms)? @ -default Side effects of treatment? @ -No Exacerbation, Progression, or Severe Exacerbation? @ -No Poses a threat to life or bodily function? How? (Chest pain, [place], [place], pneumonia, PE, COPD, DKA, ARF, appy, cholecystitis, CVA, Diverticulitis, Homicidal, Suicidal, threat to staff... and all critical care pts) @ -No - Lab Data Result diagrams: 11/27/22 21:20 11/27/22 21:20 Lab Results 11/27/22 11/27/22 11/27/22 Range/Units 21:20 21:20 21:20 WBC 8.8 (3.8-10.6) k/uL RBC 4.18 L (4.30-5.90) m/uL Hgb 12.8 L (13.0-17.5) gm/dL Hct 38.4 L (39.0-53.0) % MCV 91.9 (80.0-100.0) fL MCH 30.6 (25.0-35.0) pg MCHC 33.3 (31.0-37.0) g/dL RDW 13.2 (11.5-15.5) % Plt Count 204 (150-450) k/uL MPV 8.1 Neutrophils % 63 % Lymphocytes % 24 % Monocytes % 7 % Eosinophils % 5 % Basophils % 0 % Neutrophils # 5.6 (1.3-7.7) k/uL Lymphocytes # 2.1 (1.0-4.8) k/uL Monocytes # 0.6 (0-1.0) k/uL Eosinophils # 0.4 (0-0.7) k/uL Basophils # 0.0 (0-0.2) k/uL PT 10.8 (9.0-12.0) sec INR 1.0 (<1.2) APTT 26.8 (22.0-30.0) sec Sodium 136 L (137-145) mmol/L Potassium 4.8 (3.5-5.1) mmol/L Chloride 106 (98-107) mmol/L Carbon Dioxide 24 (22-30) mmol/L Anion Gap 6 mmol/L BUN 21 H (9-20) mg/dL Creatinine 1.23 (0.66-1.25) mg/dL Est GFR (CKD-EPI)AfAm 69 (>60 ml/min/1.73 sqM) Est GFR (CKD-EPI)NonAf 60 (>60 ml/min/1.73 sqM) Glucose 115 H (74-99) mg/dL Calcium 8.4 (8.4-10.2) mg/dL Total Bilirubin 0.7 (0.2-1.3) mg/dL AST 22 (17-59) U/L ALT 10 (4-49) U/L Alkaline Phosphatase 74 (38-126) U/L Ammonia (<30) umol/L Creatine Kinase 60 (55-170) U/L Total Protein 5.8 L (6.3-8.2) g/dL Albumin 3.3 L (3.5-5.0) g/dL Urine Color Urine Appearance (Clear) Urine pH (5.0-8.0) Ur Specific [place] (1.001-1.035) Urine Protein (Negative) Urine Glucose (UA) (Negative) Urine Ketones (Negative) Urine Blood (Negative) Urine Nitrite (Negative) Urine Bilirubin (Negative) Urine Urobilinogen (<2.0) mg/dL Ur Leukocyte Esterase (Negative) Serum Alcohol <10 mg/dL 11/27/22 11/27/22 Range/Units 21:20 22:06 WBC (3.8-10.6) k/uL RBC (4.30-5.90) m/uL Hgb (13.0-17.5) gm/dL Hct (39.0-53.0) % MCV (80.0-100.0) fL MCH (25.0-35.0) pg MCHC (31.0-37.0) g/dL RDW (11.5-15.5) % Plt Count (150-450) k/uL MPV Neutrophils % % Lymphocytes % % Monocytes % % Eosinophils % % Basophils % % Neutrophils # (1.3-7.7) k/uL Lymphocytes # (1.0-4.8) k/uL Monocytes # (0-1.0) k/uL Eosinophils # (0-0.7) k/uL Basophils # (0-0.2) k/uL PT (9.0-12.0) sec INR (<1.2) APTT (22.0-30.0) sec Sodium (137-145) mmol/L Potassium (3.5-5.1) mmol/L Chloride (98-107) mmol/L Carbon Dioxide (22-30) mmol/L Anion Gap mmol/L BUN (9-20) mg/dL Creatinine (0.66-1.25) mg/dL Est GFR (CKD-EPI)AfAm (>60 ml/min/1.73 sqM) Est GFR (CKD-EPI)NonAf (>60 ml/min/1.73 sqM) Glucose (74-99) mg/dL Calcium (8.4-10.2) mg/dL Total Bilirubin (0.2-1.3) mg/dL AST (17-59) U/L ALT (4-49) U/L Alkaline Phosphatase (38-126) U/L Ammonia 13 (<30) umol/L Creatine Kinase (55-170) U/L Total Protein (6.3-8.2) g/dL Albumin (3.5-5.0) g/dL Urine Color Yellow Urine Appearance Clear (Clear) Urine pH 5.0 (5.0-8.0) Ur Specific [place] 1.023 (1.001-1.035) Urine Protein Negative (Negative) Urine Glucose (UA) Negative (Negative) Urine Ketones Negative (Negative) Urine Blood Negative (Negative) Urine Nitrite Negative (Negative) Urine Bilirubin Negative (Negative) Urine Urobilinogen <2.0 (<2.0) mg/dL Ur Leukocyte Esterase Negative (Negative) Serum Alcohol mg/dL Disposition Clinical Impression: Altered mental status Disposition: ADMITTED IP TO THIS HOSP Is patient prescribed a controlled substance at d/c from ED?: No Referrals: Renetta Colon III, MD [Primary Care Provider] - 1-2 days Time of Disposition: 22:49
[2022-11-27 21:33] LABS: Basophils % (A) 0 %; Eosinophils # (A) 0.4 k/uL (0-0.7); Eosinophils % (A) 5 %; HCT 38.4 % (39.0-53.0); HGB 12.8 gm/dL (13.0-17.5); Lymphocytes # (A) 2.1 k/uL (1.0-4.8); Lymphocytes % (A) 24 %; MCH 30.6 pg (25.0-35.0); MCHC 33.3 g/dL (31.0-37.0); MCV 91.9 fL (80.0-100.0); Mean Platelet Volume 8.1; Monocytes # (A) 0.6 k/uL (0-1.0); Monocytes % (A) 7 %; Neutrophils # (A) 5.6 k/uL (1.3-7.7); Neutrophils % (A) 63 %; Platelet Count 204 k/uL (150-450); RBC 4.18 m/uL (4.30-5.90); RDW 13.2 % (11.5-15.5); WBC 8.8 k/uL (3.8-10.6)
--- NOTE | 2022-11-27 21:37 | CT ---
EXAMINATION TYPE: CT brain wo con CT DLP: 1976.2 mGycm, Automated exposure control for dose reduction was used. DATE OF EXAM: 11/27/2022 9:19 PM COMPARISON: MR brain 10/03/2022. CLINICAL INDICATION:Male, 67 years old with history of Neuro deficit, acute, stroke suspected, Neuro deficit, acute, stroke suspected TECHNIQUE: Brain: Axial CT images of the brain were obtained with coronal and sagittal reformats created and rev iewed. Contrast used: None. Oral contrast used: None. FINDINGS: Brain: Extra-axial spaces: No abnormal extra-axial fluid collections. Ventricular system: Dilatation in proportion to cerebral atrophy. Cerebral parenchyma: Hypodense right gonzalez radiata area and right caudate nucleus as well as left th alamus injuries. Cerebral atrophy. No acute intraparenchymal hemorrhage or mass effect. The stiles-whi te junction is well differentiated. Cerebellum: Unremarkable. Mass effect: No evidence of midline shift. Intracranial vasculature: Atherosclerotic calcifications of the intracranial vessels. Soft tissues: Normal. Calvarium/osseous structures: No depressed skull fracture. Paranasal sinuses and mastoid air cells: Mild scattered paranasal sinus disease. Visualized orbits: Bilateral aphakia IMPRESSION: 1. No evidence for acute/subacute CVA. 2. Old right gonzalez radiata injury.
--- NOTE | 2022-11-27 21:40 | CT ---
EXAMINATION TYPE: CT angio head neck CT DLP: 1976.2 mGycm, Automated exposure control for dose reduction was used. DATE OF EXAM: 11/27/2022 9:32 PM COMPARISON: CT same day. CLINICAL INDICATION:Male, 67 years old with history of Neuro deficit, acute, stroke suspected; PHH, N euro deficit, acute, stroke suspected TECHNIQUE: Axially acquired helical CT angiogram of the head and neck was obtained with contrast. Axi al images are supplemented with 3D reconstructions which [facility] NASCET criteria used. Contrast used:65 ml mL of Isovue 370 with IV Contrast, Oral contrast used: None. FINDINGS: CTA HEAD: No evidence of acute intracranial hemorrhage, mass effect, or midline shift. The ventricles, sulci, a nd cisterns are unremarkable. The visualized portions of the internal carotid arteries, middle cerebral arteries, anterior cerebral arteries, and posterior cerebral arteries are patent. Atherosclerosis of the carotid siphon bilatera lly. The basilar and vertebral arteries are patent. CTA NECK: Right Carotid System: The common carotid artery and external carotid artery are patent. The carotid bifurcation demonstrate s no evidence of hemodynamically significant stenosis. The remaining portions of the internal carotid artery demonstrate normal size without significant narrowing. Left Carotid System: The common carotid artery and external carotid artery are patent. The carotid bifurcation demonstrate s no evidence of hemodynamically significant stenosis. The remaining portions of the internal carotid artery demonstrate normal size without significant narrowing. Vertebral arteries are patent without evidence hemodynamically significant stenosis. There is a three-vessel aortic arch. The origins of the great vessels are patent. No evidence of hemo dynamically significant stenosis. Upper thorax: Increased interstitial lung changes. Paraseptal emphysema changes also present. IMPRESSION: 1. No evidence of dissection of the cervical internal carotid arteries or vertebral arteries or any e vidence of significant stenosis at the carotid bifurcations. 2. No evidence of intracranial high-grade stenosis or intracranial aneurysm.
[2022-11-27 21:45] LABS: Partial Thromboplastin Time 26.8 sec (22.0-30.0); Prothrombin Time 10.8 sec (9.0-12.0)
[2022-11-27 21:49] LABS: ALT 10 U/L (4-49); AST 22 U/L (17-59); African American GFR (CKD) 69 (>60 ml/min/1.73 sqM); Albumin 3.3 g/dL (3.5-5.0); Alcohol <10 mg/dL; Alkaline Phosphatase 74 U/L (38-126); Anion Gap 6 mmol/L; Blood Urea Nitrogen 21 mg/dL (9-20); Calcium 8.4 mg/dL (8.4-10.2); Carbon Dioxide 24 mmol/L (22-30); Chloride 106 mmol/L (98-107); Creatine Kinase 60 U/L (55-170); Glucose 115 mg/dL (74-99); Non-African American GFR(CKD) 60 (>60 ml/min/1.73 sqM); Potassium 4.8 mmol/L (3.5-5.1); Sodium 136 mmol/L (137-145); Total Bilirubin 0.7 mg/dL (0.2-1.3); Total Protein 5.8 g/dL (6.3-8.2)
--- NOTE | 2022-11-27 21:51 | XR ---
EXAMINATION TYPE: XR chest 2V DATE OF EXAM: 11/27/2022 9:45 PM COMPARISON: Chest radiographs from 11/26/2021 TECHNIQUE: XR chest 2V Frontal and lateral views of the chest. CLINICAL INDICATION:Male, 67 years old with history of altered mental status; FINDINGS: Lungs/Pleura: There is no evidence of pleural effusion, focal consolidation, or pneumothorax. Pulmonary vascularity: Unremarkable. Heart/mediastinum: Cardiomediastinal silhouette is enlarged and stable. Musculoskeletal: No acute osseous pathology. Suspected prior left AC joint separation. Right proximal humerus surgical change with anchors. IMPRESSION: No acute cardiopulmonary disease/process.
[2022-11-27 22:39] LABS: Appearance,Urine Clear (Clear); Bilirubin,Urine Negative (Negative); Blood,Urine Negative (Negative); Color,Urine Yellow; Glucose,Urine (UA) Negative (Negative); Ketones,Urine Negative (Negative); Leukocyte Esterase,Urine Negative (Negative); Nitrite,Urine Negative (Negative); Protein,Urine Negative (Negative); Specific Gravity,Urine 1.023 (1.001-1.035); Urobilinogen,Urine <2.0 mg/dL (<2.0)
[2022-11-27] MEDS ORDERED: NALOXONE 0.4 MG/ML 1 ML VIAL IV PRN (22:49)
[2022-11-27 22:53] LABS: Cocaine Screen,Urine Not Detected (NotDetected); Phencyclidine Screen,Urine Not Detected (NotDetected); Urn Cannabinoid Scrn Detected (NotDetected)
[2022-11-27 22:54] LABS: Amphetamine Screen,Urine Not Detected (NotDetected); Barbiturate Screen,Urine Not Detected (NotDetected); Benzodiazepines Screen,Urine Not Detected (NotDetected); Methadone Screen, Urine Not Detected (NotDetected); Opiate Screen,Urine Not Detected (NotDetected); Oxycodone Screen, Urine Not Detected (NotDetected); Tricyclic Antidepressant,Urine Not Detected (NotDetected)
[2022-11-28 06:45] LABS: Basophils % (A) 0 %; Eosinophils # (A) 0.3 k/uL (0-0.7); Eosinophils % (A) 4 %; HGB 13.2 gm/dL (13.0-17.5); Lymphocytes # (A) 1.8 k/uL (1.0-4.8); Lymphocytes % (A) 20 %; MCH 31.7 pg (25.0-35.0); MCHC 33.9 g/dL (31.0-37.0); MCV 93.4 fL (80.0-100.0); Mean Platelet Volume 8.6; Monocytes # (A) 0.6 k/uL (0-1.0); Monocytes % (A) 7 %; Neutrophils % (A) 68 %; Platelet Count 194 k/uL (150-450); RBC 4.18 m/uL (4.30-5.90); RDW 13.1 % (11.5-15.5); WBC 8.9 k/uL (3.8-10.6)
[2022-11-28 06:55] LABS: ALT 15 U/L (4-49); AST 21 U/L (17-59); African American GFR (CKD) 77 (>60 ml/min/1.73 sqM); Albumin 3.4 g/dL (3.5-5.0); Alkaline Phosphatase 61 U/L (38-126); Anion Gap 5 mmol/L; Blood Urea Nitrogen 20 mg/dL (9-20); Calcium 8.4 mg/dL (8.4-10.2); Carbon Dioxide 26 mmol/L (22-30); Chloride 107 mmol/L (98-107); Glucose 85 mg/dL (74-99); Non-African American GFR(CKD) 66 (>60 ml/min/1.73 sqM); Potassium 4.7 mmol/L (3.5-5.1); Sodium 138 mmol/L (137-145); Total Bilirubin 0.8 mg/dL (0.2-1.3); Total Protein 5.8 g/dL (6.3-8.2)
[2022-11-28] MEDS ORDERED: ASPIRIN 81 MG PO STA (10:49)
[2022-11-28] MEDS ORDERED: ALBUTEROL NEBULIZED 2.5 MG/3 ML INHALATION PRN (10:52)
[2022-11-28] MEDS: CARBIDOPA-LEVODOPA 25-100 MG 1 EACH TAB PO SCH (11:22)
[2022-11-28] MEDS: CLOPIDOGREL 75 MG TAB PO SCH (11:23)
--- NOTE | 2022-11-28 13:23 | P.CNNES ---
History of Present Illness Consult date: 11/28/22 Requesting physician: Abe Mota Reason for Consult: Altered mental status History of Present Illness: Patient is a 67-year-old left-handed male came to the hospital by ambulance yesterday at 8:55 PM for altered mental status. I spoke to patient's on the phone, who provided with a history. She mentions that yesterday evening patient drank tea, watched a movie and after he was done with eating at around 7 AM, suddenly his eyes closed and he was not responding, mumbling. She felt patient needed to go to the restroom. She tried to help him get up, but he could not stand on the feet. He was unable to respond or open his eyes and was mumbling. No seizure-like activity was noted. She says that he appeared like "deflated balloon". She also mentions the patient does fall a lot, and uses walkers with meals. At home he has fallen a couple times. At home he uses polanco to guide self along the wall to the bathroom. Patient's denies any previous history of strokes or TIA. Sometimes he may get slurred speech but it is very momentarily and then resolves. She says that he does always mumble. She says that he has been falling for "years". He was diagnosed with Parkinson's disease. EMS flow sheet not available in the chart. Vital signs on arrival blood pressure 126/85, pulse rate 84, temperature 98.1. Blood test shows normal WBC hemoglobin 12.8, platelets 204, PT/PTT normal, sodium 136 potassium 4.8, BUN 21 creatinine 1.23. Hepatic panel is normal, ammonia normal 13. CK normal 60. UA , urine drug screen negative except for marijuana. Blood alcohol level <10. CT head revealed no evidence for acute/subacute CVA. Old right gonzalez radiata injury. Agree with the report. On my review, there is evidence of an old lacune in the right caudate and the left thalamus. Visualized paranasal sinuses are clear. EKG shows sinus rhythm, chest x-ray normal. Patient had a brain MRI performed recently 10/03/2022 for ataxia, falls, hearing loss, possible CVA which revealed mild to moderate generalized cerebral atrophy. No acute process. Small amount of fluid within the inferior right mastoid air cells. Moderate to severe chronic ethmoid sinus disease. Patient started smoking since age 6, and has smoked 1 pack per day since age 13. About 3 months ago, he switched and started smoking 3 cigars per day. Denies any alcohol or drug use. Denies any history of seizures. Home medications include albuterol, simvastatin 10 mg, Mirapex 1.5 mg at bedtime, Lexapro 20 mg, vitamin D and Sinemet 25/100, 2 tablet twice a day. Patient's mentions that patient does take aspirin 81 mg every day and is compliant,(not listed in the home medication list) Review of Systems Constitutional: Reports weight gain, Denies chills, Denies fever Eyes: denies blurred vision, denies diplopia, denies pain Ears: bilateral: decreased hearing, deny: earache Ears, nose, mouth and throat: Reports sore throat, Denies headache Cardiovascular: Denies chest pain, Denies shortness of breath Respiratory: Reports cough with sputum, Denies hemoptysis Gastrointestinal: Denies abdominal pain, Denies diarrhea, Denies nausea, Denies vomiting Musculoskeletal: Reports low back pain, Denies myalgias, Denies neck pain Integumentary: Denies pruritus, Denies rash Neurological: Reports as per HPI Psychiatric: Denies anxiety, Denies depression Endocrine: Reports weight change, Denies fatigue Hematologic/Lymphatic: Denies easy bleeding, Denies easy bruising Past Medical History Past Medical History: Hyperlipidemia Additional Past Medical History / Comment(s): states positive cologaurd, states hx of cancerous colon polyps, Restless leg, states occasionally SOB, 4 mini strokes History of Any Multi-Drug Resistant Organisms: None Reported Past Surgical History: Appendectomy, Back Surgery, Orthopedic Surgery Additional Past Surgical History / Comment(s): Bilateral shoulder surgery, right elbow, right knee Past Anesthesia/Blood Transfusion Reactions: No Reported Reaction Past Psychological History: No Psychological Hx Reported Smoking Status: Current every day smoker Past Alcohol Use History: None Reported Additional Past Alcohol Use History / Comment(s): started smoking age 6, cut down to about 3-4cigarettes daily, had been up to 4 PPD Past Drug Use History: None Reported Additional Drug Use History / Comment(s): CBD - Past Family History Father Family Medical History: Cancer Mother Family Medical History: Cancer Medications and Allergies Home Medications Medication Instructions Recorded Confirmed Type Albuterol Inhaler [Ventolin Hfa 2 puff INHALATION RT-Q6H PRN 06/13/18 11/27/22 History Inhaler] Pramipexole [Mirapex] 1.5 mg PO HS 06/13/18 11/27/22 History Simvastatin [Zocor] 10 mg PO HS 06/13/18 11/27/22 History Acetaminophen Tab [Tylenol Tab] 1,000 mg PO Q6HR PRN 11/26/21 11/27/22 History Escitalopram [Lexapro] 20 mg PO HS 11/26/21 11/27/22 History Carbidopa/Levodopa 2 tab PO BID@0730,1330 11/27/22 11/27/22 History [Carbidopa-Levodopa 25-100 Tab] Cholecalciferol [Vitamin D3 (125 125 mcg PO HS 11/27/22 11/27/22 History Mcg = 5000 Iu)] Allergies Allergy/AdvReac Type Severity Reaction Status Date / Time amoxicillin Allergy Rash/Hives Verified 11/27/22 23:03 Physical Examination - Vital Signs Vital Signs: Vital Signs Temp Pulse Pulse Resp BP BP Pulse Ox 11/28/22 08:00 98.0 F 71 18 119/75 97 11/28/22 06:58 98.0 F 71 18 119/75 97 11/28/22 02:00 97.7 F 70 18 116/74 99 11/28/22 00:13 98.2 F 98 17 107/66 99 11/27/22 23:56 98.1 F 78 16 109/79 98 11/27/22 23:00 85 14 144/82 99 11/27/22 22:31 74 11 L 133/71 98 11/27/22 22:00 73 12 111/70 99 11/27/22 21:30 85 13 105/81 96 11/27/22 21:22 91 14 116/87 98 11/27/22 20:56 84 18 126/85 Intake and Output 11/27/22 11/28/22 11/28/22 22:59 06:59 14:59 Output Total 250 Balance -250 Output: Urine 250 Other: Weight 121.109 kg 129 kg Patient is an elderly male, in no acute distress. Patient is alert awake oriented to time place and person. Speech is at least moderately dysarthric and language functions are normal. Patient can name and repeat very well. Attention, concentration and fund of knowledge is adequate. Detail cognitive function testing deferred. On cranial nerve examination, pupils are surgical bilaterally and appears probably equal, round and minimally reacting to light, visual acosta are full on confrontation, with no neglect on double simultaneous stimulation. Extraocular muscles are intact with no nystagmus. Face is symmetric, tongue protrudes to the midline. Palatal elevation and sensation normal, hearing is decreased and shoulder shrug normal, facial sensation normal. On muscle strength testing, there is no pronator drift and the strength is normal in arms and legs distally and proximally. Deep tendon reflexes are symmetric biceps 1+, brachioradialis 1+, knees 2, ankles 2 and plantars are flexor versus up bilaterally. Sensory to touch is equal with no neglect on double simultaneous stimulation. Cerebellar function showed no ataxia for [id number] testing on either side. No dysdiadochokinesia. Patient has at least moderate ataxia for [id number] testing bilaterally. Tone and bulk of muscles normal. Gait deferred.. On general examination, there is no carotid bruit or murmur, S1-S2 audible. Chest is clear on consultation. Abdomen is soft nontender. No organomegaly, bowel sounds present. Peripheral pulses are present. No edema. Results - Laboratory Findings CBC and BMP: 11/28/22 06:06 11/28/22 06:06 Abnormal Lab Findings: Abnormal Labs 11/27/22 11/27/22 11/27/22 21:20 21:20 22:06 RBC 4.18 L Hgb 12.8 L Hct 38.4 L Sodium 136 L BUN 21 H Glucose 115 H Total Protein 5.8 L Albumin 3.3 L U Marijuana (THC) Screen Detected H 11/28/22 11/28/22 06:06 06:06 RBC 4.18 L Hgb Hct Sodium BUN Glucose Total Protein 5.8 L Albumin 3.4 L U Marijuana (THC) Screen Assessment and Plan Assessment: * Probable acute CVA manifesting with slurred speech * CT had revealed evidence of old CVA involving right gonzalez radiata, right caudate and left thalamus. No clinical history of previous strokes/TIA. Uncertain if there is some subacute component. * Hyperlipidemia * Reported diagnosis of Parkinson's disease. Patient does have ataxia of bilateral lower extremities. * Tobacco use Plan: * Patient was taking aspirin 81 mg at home. Patient will receive aspirin 325 mg 1 dose. Start Plavix 75 mg daily for now. * MRI of brain evaluate for an acute stroke * 2-D echo with bubble study, rule out PFO. * CTA of head and neck revealed no evidence of dissection of the cervical internal carotid arteries or vertebral arteries or any evidence of significant stenosis at the carotid bifurcations. No evidence of intracranial high-grade stenosis or intracranial aneurysm. * Hemoglobin A1c 6.1 on 11/06/2022. * Fasting a.m. lipid panel * PT, OT, speech therapy * Telemetry monitoring, rule out arrhythmia. * For possible Parkinson's disease, continue Sinemet. * B12 311. We will check folate, MMA. * TSH is normal 2.49 * Neurology will follow. Thank you for the consult.
--- NOTE | 2022-11-28 13:49 | MR ---
EXAMINATION TYPE: MR brain wo con DATE OF EXAM: 11/28/2022 COMPARISON: 11/27/2022 CT brain HISTORY: Slurred/Delayed speech, left side weakness CONTRAST: Performed utilizing 0 mL intravenous Gadavist gadolinium contrast. TECHNIQUE: Multiplanar, multiecho imaging on a 3.0 Chelo magnet is performed through the brain. Stud y is performed within 24 hours of arrival to the hospital. The craniovertebral junction is normal. The pituitary is normal. Diffusion-weighted imaging is performed. No abnormal hyperintensity is present to suggest an acute i ntracranial infarct or acute ischemic change. There are scattered punctate areas of hyperintensity on T2 and Inversion Recovery weighted sequences which are non-specific but can be related to microvascular ischemic changes. This includes some signa l hyperintensity within the brainstem. Ventricles and sulci are slightly prominent for the patient age. IMPRESSIONS: 1. Scattered periventricular and deep white matter signal change likely on the basis of chronic white matter ischemic change. 2. No acute intracranial process. 3. Mild age-related atrophy.
--- NOTE | 2022-11-28 13:58 | P.HPIM ---
History of Present Illness H&P Date: 11/28/22 History of present illness; patient is 67-year-old gentleman past medical histor y significant for hyperlipidemia presented to the ER because an episode of slurred speech. Patient stated that he was all right yesterday evening around 7:30 when he had an episode of slurred speech patient was also a bit confused and drowsy. called EMS and patient was brought to the ER. By the time, patient came to the ER all symptoms had resolved Initial lab work done in the ER showed WBC 8.8, hemoglobin 12.8, platelet count 204, sodium 136, potassium 4.8, BUN 21, creatinine 1.23, CT brain was negative for acute/subacute CVA CTA head and neck did not show any evidence of dissection of the cervical internal carotid arteries or vertebral arteries or any stenosis Patient was admitted to medicine service REVIEW OF SYSTEMS: CONSTITUTIONAL: No fever, no malaise, no fatigue. HEENT: No recent visual problems or hearing problems. Denied any sore throat. CARDIOVASCULAR: No chest pain, orthopnea, PND, no palpitations, no syncope. PULMONARY: No shortness of breath, no cough, no hemoptysis. GASTROINTESTINAL: No diarrhea, no nausea, no vomiting, no abdominal pain. NEUROLOGICAL: No headaches, no weakness, no numbness. HEMATOLOGICAL: Denies any bleeding or petechiae. GENITOURINARY: Denies any burning micturition, frequency, or urgency. MUSCULOSKELETAL/RHEUMATOLOGICAL: Denies any joint pain, swelling, or any muscle pain. ENDOCRINE: Denies any polyuria or polydipsia. The rest of the 14-point review of systems is negative. PHYSICAL EXAMINATION: GENERAL: The patient is alert and oriented x3, not in any acute distress. Well developed, well nourished. HEENT: Pupils are round and equally reacting to light. EOMI. No scleral icterus. No conjunctival pallor. Normocephalic, atraumatic. No pharyngeal erythema. No thyromegaly. CARDIOVASCULAR: S1 and S2 present. No murmurs, rubs, or gallops. PULMONARY: Chest is clear to auscultation, no wheezing or crackles. ABDOMEN: Soft, nontender, nondistended, normoactive bowel sounds. No palpable organomegaly. MUSCULOSKELETAL: No joint swelling or deformity. EXTREMITIES: No cyanosis, clubbing, or pedal edema. NEUROLOGICAL: Muscles strength is a 5 x 5 in all extremities, cranial nerves II- 12 intact. Patient has slightly muffled speech SKIN: No rashes. Assessment and plan Slurred speech TIA History of parkinsonism Monitor vital signs Monitor CBC Monitor CMP Continue telemetry monitoring Continue checks MRI brain ordered 2-D echo Continue aspirin and Plavix Consult neurology Labs and medication were reviewed.. Continue same treatment. Continue with symptomatic treatment. Resume home medication. Monitor labs and vitals. DVT and GI prophylaxis. Further recommendations as per clinical course of the patient Past Medical History Past Medical History: Hyperlipidemia Additional Past Medical History / Comment(s): states positive cologaurd, states hx of cancerous colon polyps, Restless leg, states occasionally SOB, 4 mini strokes History of Any Multi-Drug Resistant Organisms: None Reported Past Surgical History: Appendectomy, Back Surgery, Orthopedic Surgery Additional Past Surgical History / Comment(s): Bilateral shoulder surgery, right elbow, right knee Past Anesthesia/Blood Transfusion Reactions: No Reported Reaction Past Psychological History: No Psychological Hx Reported Smoking Status: Current every day smoker Past Alcohol Use History: None Reported Additional Past Alcohol Use History / Comment(s): started smoking age 6, cut down to about 3-4cigarettes daily, had been up to 4 PPD Past Drug Use History: None Reported Additional Drug Use History / Comment(s): CBD - Past Family History Father Family Medical History: Cancer Mother Family Medical History: Cancer Medications and Allergies Home Medications Medication Instructions Recorded Confirmed Type Albuterol Inhaler [Ventolin Hfa 2 puff INHALATION RT-Q6H PRN 06/13/18 11/27/22 History Inhaler] Pramipexole [Mirapex] 1.5 mg PO HS 06/13/18 11/27/22 History Simvastatin [Zocor] 10 mg PO HS 06/13/18 11/27/22 History Acetaminophen Tab [Tylenol Tab] 1,000 mg PO Q6HR PRN 11/26/21 11/27/22 History Escitalopram [Lexapro] 20 mg PO HS 11/26/21 11/27/22 History Carbidopa/Levodopa 2 tab PO BID@0730,1330 11/27/22 11/27/22 History [Carbidopa-Levodopa 25-100 Tab] Cholecalciferol [Vitamin D3 (125 125 mcg PO HS 11/27/22 11/27/22 History Mcg = 5000 Iu)] Allergies Allergy/AdvReac Type Severity Reaction Status Date / Time amoxicillin Allergy Rash/Hives Verified 11/27/22 23:03 Physical Exam Vitals: Vital Signs Temp Pulse Pulse Resp BP BP Pulse Ox 11/28/22 08:00 98.0 F 71 18 119/75 97 11/28/22 06:58 98.0 F 71 18 119/75 97 11/28/22 02:00 97.7 F 70 18 116/74 99 11/28/22 00:13 98.2 F 98 17 107/66 99 11/27/22 23:56 98.1 F 78 16 109/79 98 11/27/22 23:00 85 14 144/82 99 11/27/22 22:31 74 11 L 133/71 98 11/27/22 22:00 73 12 111/70 99 11/27/22 21:30 85 13 105/81 96 11/27/22 21:22 91 14 116/87 98 11/27/22 20:56 84 18 126/85 Intake and Output 11/27/22 11/28/22 11/28/22 22:59 06:59 14:59 Output Total 250 Balance -250 Output: Urine 250 Other: Weight 121.109 kg 129 kg Results CBC & Chem 7: 11/28/22 06:06 11/28/22 06:06 Labs: Abnormal Lab Results - Last 24 Hours (Table) 11/27/22 11/27/22 11/27/22 Range/Units 21:20 21:20 22:06 RBC 4.18 L (4.30-5.90) m/uL Hgb 12.8 L (13.0-17.5) gm/dL Hct 38.4 L (39.0-53.0) % Sodium 136 L (137-145) mmol/L BUN 21 H (9-20) mg/dL Glucose 115 H (74-99) mg/dL Total Protein 5.8 L (6.3-8.2) g/dL Albumin 3.3 L (3.5-5.0) g/dL U Marijuana (THC) Screen Detected H (NotDetected) 11/28/22 11/28/22 Range/Units 06:06 06:06 RBC 4.18 L (4.30-5.90) m/uL Hgb (13.0-17.5) gm/dL Hct (39.0-53.0) % Sodium (137-145) mmol/L BUN (9-20) mg/dL Glucose (74-99) mg/dL Total Protein 5.8 L (6.3-8.2) g/dL Albumin 3.4 L (3.5-5.0) g/dL U Marijuana (THC) Screen (NotDetected) Thrombosis Risk Factor Assmnt - Choose All That Apply Each Factor Represents 1 point: Abnormal pulmonary function (COPD) Each Risk Factor Represents 2 Points: Age 61-74 years Thrombosis Risk Factor Assessment Total Risk Factor Score: 3 Thrombosis Risk Factor Assessment Level: Moderate Risk
[2022-11-28] MEDS: CYANOCOBALAMIN 500 MCG TAB PO SCH (16:06)
[2022-11-28] MEDS ORDERED: ESCITALOPRAM 20 MG TAB PO SCH (21:00)
[2022-11-28] MEDS ORDERED: PRAMIPEXOLE 0.5 MG TAB PO SCH (21:00)
[2022-11-28] MEDS ORDERED: CHOLECALCIFEROL 125 MCG (5000 IU) TABLET PO SCH (21:00)
[2022-11-28] MEDS ORDERED: ATORVASTATIN 10 MG TAB PO SCH (21:00)
[2022-11-29] MEDS: CARBIDOPA-LEVODOPA 25-100 MG 1 EACH TAB PO SCH ×2 (06:27→13:30)
[2022-11-29] MEDS: CYANOCOBALAMIN 500 MCG TAB PO SCH (08:40)
[2022-11-29] MEDS: CLOPIDOGREL 75 MG TAB PO SCH (08:40)
[2022-11-29] MEDS ORDERED: ASPIRIN 81 MG PO SCH (09:00)
[2022-11-29 13:52] VITALS: BP 122/68; PULSE 82; RESP 17; TEMP 97.9
--- NOTE | 2022-11-29 14:15 | P.DS ---
Providers Date of admission: 11/27/22 22:49 Expected date of discharge: 11/29/22 Attending physician: Mindy Prescott Consults: 11/27/22 22:49 Consult Physician Routine Consulting Provider: Jerzy Christian Consult Reason/Comments: ams Do you want consulting provider notified?: Yes [facility]: Discharge diagnoses; Slurred speech TIA History of parkinsonism Hospital course; patient is 67-year-old gentleman past medical history significant for hyperlipidemia presented to the ER because an episode of slurred speech. Patient stated that he was all right yesterday evening around 7:30 when he had an episode of slurred speech patient was also a bit confused and drowsy. called EMS and patient was brought to the ER. By the time, patient came to the ER all symptoms had resolved Initial lab work done in the ER showed WBC 8.8, hemoglobin 12.8, platelet count 204, sodium 136, potassium 4.8, BUN 21, creatinine 1.23, CT brain was negative for acute/subacute CVA CTA head and neck did not show any evidence of dissection of the cervical internal carotid arteries or vertebral arteries or any stenosis Patient was admitted to medicine service 11/29. MRI done showed scattered periventricular and deep white matter signal changes, most likely chronic ischemic change, no acute intrarenal process Discussed with neurology, they recommended discharging patient aspirin and Plavix for 30 days followed by Plavix alone, 2-D echo could not be done today, patient family not willing to stay in the hospital further, counseled them in detail to have it completed outpatient. PHYSICAL EXAMINATION: GENERAL: The patient is alert and oriented x3, not in any acute distress. Well developed, well nourished. HEENT: Pupils are round and equally reacting to light. EOMI. No scleral icterus. No conjunctival pallor. Normocephalic, atraumatic. No pharyngeal erythema. No thyromegaly. CARDIOVASCULAR: S1 and S2 present. No murmurs, rubs, or gallops. PULMONARY: Chest is clear to auscultation, no wheezing or crackles. ABDOMEN: Soft, nontender, nondistended, normoactive bowel sounds. No palpable organomegaly. MUSCULOSKELETAL: No joint swelling or deformity. EXTREMITIES: No cyanosis, clubbing, or pedal edema. NEUROLOGICAL: Gross neurological examination did not reveal any focal deficits. SKIN: No rashes. Plan - Discharge Summary Discharge Rx Participant: No New Discharge Prescriptions: New Aspirin 81 mg PO DAILY #30 tab Clopidogrel [Plavix] 75 mg PO DAILY #30 tab Cyanocobalamin [Vitamin B-12] 1,000 mcg PO DAILY #30 tab Continue Albuterol Inhaler [Ventolin Hfa Inhaler] 2 puff INHALATION RT-Q6H PRN PRN Reason: Shortness Of Breath Simvastatin [Zocor] 10 mg PO HS Pramipexole [Mirapex] 1.5 mg PO HS Acetaminophen Tab [Tylenol] 1,000 mg PO Q6HR PRN PRN Reason: Pain Or Fever > 100.5 Cholecalciferol [Vitamin D3 (125 Mcg = 5000 Iu)] 125 mcg PO HS Escitalopram [Lexapro] 20 mg PO HS Carbidopa/Levodopa [Carbidopa-Levodopa 25-100 Tab] 2 tab PO BID@0730,1330 Discharge Medication List Albuterol Inhaler [Ventolin Hfa Inhaler] 2 puff INHALATION RT-Q6H PRN 06/13/18 [History] Pramipexole [Mirapex] 1.5 mg PO HS 06/13/18 [History] Simvastatin [Zocor] 10 mg PO HS 06/13/18 [History] Acetaminophen Tab [Tylenol] 1,000 mg PO Q6HR PRN 11/26/21 [History] Escitalopram [Lexapro] 20 mg PO HS 11/26/21 [History] Carbidopa/Levodopa [Carbidopa-Levodopa 25-100 Tab] 2 tab PO BID@0730,1330 11/27/22 [History] Cholecalciferol [Vitamin D3 (125 Mcg = 5000 Iu)] 125 mcg PO HS 11/27/22 [History] Aspirin 81 mg PO DAILY #30 tab 11/29/22 [Rx] Clopidogrel [Plavix] 75 mg PO DAILY #30 tab 11/29/22 [Rx] Cyanocobalamin [Vitamin B-12] 1,000 mcg PO DAILY #30 tab 11/29/22 [Rx] Follow up Appointment(s)/Referral(s): Renetta Colon III, MD [Primary Care Provider] - 1-2 days Dontrell Centeno MD [Medical Doctor] - 1 Week Activity/Diet/Wound Care/Special Instructions: Take aspirin and Plavix for 30 days followed by Plavix alone going forward Patient needs outpatient echo
--- NOTE | 2022-11-29 16:00 | P.PN ---
Progress Note - Text Progress Note Date: 11/29/22 Review of tests:
[2022-11-30 00:12] LABS: Chol/HDL Ratio 3.67 Ratio; LDL Cholesterol,Calculated 84.6 mg/dL (0.0-131.0)
== END 2022-11-29 15:33 | disposition home or self-care (01) ==
LOC: EC 20:55 → 4SSUR 22:49 → INTOOBSV 22:49 → 4SSUR 22:58
PROVIDERS: ADMIT Hospitalist; ATTEND Hospitalist
DX: G45.9 Transient cerebral ischemic attack, unspecified (principal); G20 Parkinson's disease; G25.81 Restless legs syndrome; I67.2 Cerebral atherosclerosis; F17.210 Nicotine dependence, cigarettes, uncomplicated; J32.2 Chronic ethmoidal sinusitis; F17.290 Nicotine dependence, other tobacco product, uncomplicated; J43.8 Other emphysema; F12.90 Cannabis use, unspecified, uncomplicated; E78.5 Hyperlipidemia, unspecified; G31.9 Degenerative disease of nervous system, unspecified; Z79.899 Other long term (current) drug therapy; Z79.82 Long term (current) use of aspirin; Z88.0 Allergy status to penicillin; Z80.9 Family history of malignant neoplasm, unspecified
CPT/HCPCS: 99285; 36415; 94760 ×2; 93005; 83921; 80061; 80053 ×2; 82140; 82550; 82746; 85025 ×2; 85610; 85730; 81003; 80306; 71046; 70496; 70450; 70498; 70551; G0378 ×3; G0480; Q9967; 80320